=== PATIENT | female | born 1950 | race Caucasian/White ===

== ENCOUNTER 2016-06-27 06:01 | Inpatient (IN) ==
--- NOTE | 2016-06-27 06:59 | Emergency Department Note ---
Disposition Clinical Impression: Hypertensive urgency Disposition: Admitted As Inpatient Condition: Fair Referrals: Jennifer Birch DO [Primary Care Provider] - Forms: Work/School Release, ED Satisfaction Letter Time of Disposition: 09:26 General Adult HPI - General Chief complaint: ED General Medical Stated complaint: High BP Time Seen by Provider: 06/27/16 06:11 Source: patient Limitations: no limitations Nursing Notes Reviewed: Yes Vital Signs Reviewed: Yes - History of Present Illness HPI Narrative: 65-year-old alert and oriented nontoxic-appearing female presents to the emergency Department for chief complaint of "high blood pressure". Patient states that she has felt "rather cruddy" for the past week or so. She states that yesterday morning, she thought that it could be due to her blood pressure, so she checked her pressure at home with her personal blood pressure cuff. She obtained subsequent readings of 250/110 and 243/110. She states that she has also been rather dizzy during this 1 week time frame, however states "it is different than my usual vertigo". She does complain of some associated nausea, however no vomiting. She complains of a headache that began yesterday and is still present today. She states that the headache was gradual in onset. When asked, she denies it coming on as a "thunderclap headache". She does not describe this headache as the worst headache of her life. She rates her headache right now at an 8 out of 10 on a 10 point scale. She states this headache is primarily located to the left occipital region, behind the left ear. She denies any visual disturbances. She denies any injuries or traumas. She denies any known recent head injury. She does state that yesterday she also experienced an episode of left-sided chest pain that lasted approximately 20 minutes. This chest pain occurred while at rest. She describes the pain at this time as a dull pressure and rated it as an 8 out of 10 on a 10 point scale. She did not take any medication in an effort to alleviate this pain. She states that this episode resolved spontaneously after approximately 20 minutes. This pain did not radiate. She denies any chest pain at the present, as well as any chest pain after this particular incident. She denies any fever , chills, cough, abdominal pain. She does complain of being slightly short of breath, however states "but that might just be due to my asthma". Pt Subjective Complaint: "High blood pressure" Onset (ago): day(s) Pain Severity: moderate Pain Scale: 8 Quality: dull Improves with: nothing Worsens with: nothing Associated symptoms: Reports: chest pain, headaches, nausea/vomiting (nausea but no vomiting), shortness of breath, other (dizziness, hypertension) - Related Data Home Medications Medication Instructions Recorded Confirmed Aspirin [Adult Low Dose Aspirin EC] 81 mg PO DAILY 05/30/15 02/23/16 BuPROPion SR (12 HR) [Wellbutrin 150 mg PO BID 05/30/15 02/23/16 SR] Ergocalciferol (VITAMIN D2) 50,000 unit PO MOFR 05/30/15 02/23/16 [Vitamin D2 (50,000 UNIT)] Fenofibrate Nanocrystallized 145 mg PO DAILY 05/30/15 02/23/16 [Tricor] Gabapentin [Neurontin] 600 mg PO TID 05/30/15 02/23/16 Insulin ASPART [NovoLOG] 45 - 55 unit SQ QID 05/30/15 02/23/16 Insulin Glargine,Hum.rec.anlog 45 - 55 unit SQ QPM 05/30/15 02/23/16 [Lantus Solostar] Levothyroxine [Synthroid] 25 mcg PO DAILY 05/30/15 02/23/16 Losartan Potassium [Cozaar] 100 mg PO DAILY 05/30/15 02/23/16 Mesalamine [Apriso] 1.5 gm PO QAM 05/30/15 02/23/16 Omeprazole [PriLOSEC] 40 mg PO DAILY PRN 05/30/15 02/23/16 Ondansetron ODT [Zofran ODT] 4 - 8 mg SL BID PRN 05/30/15 02/23/16 Rosuvastatin [Crestor] 40 mg PO DAILY 05/30/15 02/23/16 TraMADol [Ultram] 50 mg PO TID PRN 05/30/15 02/23/16 Alendronate Sodium [Fosamax] 70 mg PO MO 02/23/16 02/23/16 Cholestyramine/Aspartame 4 gm PO BID PRN 02/23/16 02/23/16 [Cholestyramine Light Packet] Dapagliflozin Propanediol [Farxiga] 5 mg PO DAILY 02/23/16 02/23/16 FLUoxetine HCl [Prozac] 40 mg PO QAM 02/23/16 02/23/16 Furosemide [Lasix] 40 mg PO DAILY PRN 02/23/16 02/23/16 Icosapent Ethyl [Vascepa] 2 gm PO BIDWM 02/23/16 Ipratropium/Albuterol Neb [Duoneb] 3 ml IH QID PRN 02/23/16 02/23/16 Metoclopramide HCl 5 mg PO TID PRN 02/23/16 02/23/16 Trazodone HCl 150 mg PO HS 02/23/16 02/23/16 Previous Rx's Medication Instructions Recorded Amlodipine [Norvasc] 5 mg PO DAILY #30 tablet 02/24/16 Allergies Allergy/AdvReac Type Severity Reaction Status Date / Time Penicillins Allergy Intermediate Vomiting Verified 06/27/16 06:07 Sulfa (Sulfonamide Allergy Intermediate Rash Verified 06/27/16 06:07 Antibiotics) All systems ED: reviewed and negative except as stated. Constitutional: Denies: fever, chills, weakness, weight change Eyes: Denies: eye pain, eye discharge, vision change Cardiovascular: Reports: as per HPI, chest pain. Denies: palpitations, dyspnea on exertion, orthopnea, edema, syncope, paroxysmal nocturnal dyspnea Respiratory: Reports: dyspnea. Denies: cough, wheezes, hemoptysis, stridor Gastrointestinal: Reports: as per HPI, nausea. Denies: abdominal pain, vomiting , diarrhea, constipation, hematemesis, melena, hematochezia Musculoskeletal: Denies: back pain, neck pain, arthralgia, myalgia Integumentary: Denies: rash, abrasion, lesions Neurological: Reports: as per HPI, headache, other (Near syncope). Denies: weakness, numbness, paresthesias, confusion, abnormal gait Psychiatric: Denies: anxiety, depression, suicidal thoughts, homicidal thoughts , auditory hallucinations, visual hallucinations Endocrine: Denies: fatigue Hematological/Lymphatic: Denies: easy bleeding, easy bruising Allergic/Immunologic: Denies: facial swelling, urticaria Past Medical History - Past Medical History Attestation: Yes The following information was validated with the patient. Source: patient Medical history: Reports: asthma, CHF, diabetes, hyperlipidemia, hypertension, myocardial infarction, other Surgical history: Reports: cataract Psychiatric history: Reports: anxiety, depression SHANK ARCHER history: Reports: bilateral tubal ligation - Social History Smoking Status: Former smoker Smokeless Tobacco Status: No Alcohol use: Reports: occasionally Drug use: Reports: none Physical Exam - General Limitations: no limitations General appearance: alert, in no apparent distress - Head Head exam: atraumatic, normocephalic, normal inspection - Eye Eye exam: Present: normal appearance, PERRL, EOMI. Absent: nystagmus - Expanded Eye Exam Pupils: Bilateral: regular, round, reactive, size (2) - ENT ENT exam: mucous membranes moist - Neck Neck exam: Present: normal inspection, full ROM, trachea midline - Chest Chest inspection: Present: normal inspection, symmetric chest wall rise - Respiratory Respiratory exam: Present: normal lung sounds bilaterally. Absent: respiratory distress, wheezes, stridor, accessory muscle use, prolonged expiratory phase - Cardiovascular Cardiovascular exam: Present: regular rate, normal rhythm, normal heart sounds - Abdominal Exam Abdominal exam: Present: soft, Non-Tender, normal bowel sounds. Absent: tenderness, distention, guarding, rebound, rigidity, mass - Extremities Exam Extremities exam: Present: normal inspection, full ROM. Absent: tenderness, pedal edema - Back Exam Back exam: Present: normal inspection, full ROM. Absent: tenderness - Neurological Exam Neurological exam: Present: alert, oriented X3 - Expanded Neurological Exam Patient oriented to: Present: person, place, time Speech: Present: fluid speech Cranial nerves: EOM function (II, III, IV, ): Normal, facial sensation (V): Normal, tongue deviation (XII): Normal Cerebellar function: heel to vo: Normal Cerebellar function: normal gait Motor strength - LUE: 5/5 Motor strength - RUE: 5/5 Motor strength - LLE: 4/5 Motor strength - RLE: 5/5 Upper motor neuron exam: aron neglect: Absent bilaterally, pronator drift: Absent bilaterally, sensory extinction: Absent bilaterally Sensory exam upper extremity: light touch: Normal Sensory exam lower extremity: light touch: Normal Coma Scale Eye Opening: Spontaneous Coma Scale Motor Response: Obeys Commands Coma Scale Verbal Response: Oriented Coma Scale Total: 15 - Psychiatric Psychiatric exam: Present: normal affect, normal mood - Skin Skin exam: Present: warm, dry, intact, normal color. Absent: rash, cyanosis, diaphoresis, erythema, pallor, mottled Course Course Narrative: At this time laboratory results are pending. We will also obtain a noncontrast CT of the head and brain and proceed accordingly. 0750: I discussed this patient's case with Dr. Marte. Dr. Marte is in agreement with the above plan. 0925: I spoke with Dr. Herrera of the hospitalist service. Dr. Herrera excepts the patient for admission. Vital Signs Temperature 97.2 F L 06/27/16 06:04 Pulse Rate 92 06/27/16 06:04 Respiratory Rate 18 06/27/16 06:04 Blood Pressure 216/93 06/27/16 06:04 O2 Sat by Pulse Oximetry 95 06/27/16 06:04 Temperature 97.2 F L 06/27/16 06:04 Pulse Rate 72 06/27/16 09:46 Respiratory Rate 14 06/27/16 09:46 Blood Pressure 162/86 06/27/16 09:46 O2 Sat by Pulse Oximetry 98 06/27/16 09:46 Oxygen Delivery Oxygen Delivery Room Air Medical Decision Making - Medical Records Medical records reviewed: Yes I reviewed the patient's medical records. - Lab Data Lab results reviewed: Yes I reviewed the patient's lab results. Lab results narrative: Laboratory Last Values WBC 11.2 K/mcL (4.3-11.1) H 06/27/16 08:48 RBC 4.87 M/mcL (3.82-4.97) 06/27/16 08:48 Hgb 14.5 g/dL (11.5-15.4) 06/27/16 08:48 Hct 42.7 % (35.3-44.9) 06/27/16 08:48 MCV 87.7 fL (83.0-100.0) 06/27/16 08:48 MCH 29.8 pg (28.0-33.3) 06/27/16 08:48 MCHC 34.0 g/dL (31.6-35.5) 06/27/16 08:48 RDW 12.9 % (11.5-14.5) 06/27/16 08:48 Plt Count 264 K/mcL (140-400) 06/27/16 08:48 MPV 9.4 fL (9.4-12.4) 06/27/16 08:48 Immature Gran % 0.7 % (0-4) 06/27/16 08:48 Seg Neutrophils % 72.5 % 06/27/16 08:48 Lymphocytes % 19.8 % 06/27/16 08:48 Monocytes % 4.3 % 06/27/16 08:48 Eosinophils % 2.3 % 06/27/16 08:48 Basophils % 0.4 % 06/27/16 08:48 Neutrophils # 8.1 K/mcL (1.6-8.9) 06/27/16 08:48 Lymphocytes # 2.2 K/mcL (0.6-4.6) 06/27/16 08:48 Monocytes # 0.5 K/mcL (0.0-1.3) 06/27/16 08:48 Eosinophils # 0.3 K/mcL (0.0-0.6) 06/27/16 08:48 Basophils # 0.1 K/mcL (0.0-0.2) 06/27/16 08:48 PT 11.6 Seconds (9.4-12.1) 06/27/16 08:48 INR 1.1 06/27/16 08:48 APTT 33.0 Seconds (26.0-36.0) 06/27/16 08:48 D-Dimer < 215 ng/mLFEU (0-500) 06/27/16 08:48 Sodium 134 mEq/L (136-145) L 06/27/16 08:48 Potassium 3.8 mEq/L (3.5-4.5) 06/27/16 08:48 Chloride 101 mEq/L (98-109) 06/27/16 08:48 Carbon Dioxide 21 mEq/L (19-29) 06/27/16 08:48 BUN 13 mg/dL (7-20) 06/27/16 08:48 Creatinine 0.76 mg/dL (0.57-1.11) 06/27/16 08:48 Est GFR ( Amer) > 60 (> 60) 06/27/16 08:48 Est GFR (Non-Af Amer) > 60 (> 60) 06/27/16 08:48 BUN/Creatinine Ratio 17 (6-26) 06/27/16 08:48 Glucose 226 mg/dL (70-99) H 06/27/16 08:48 POC Glucose 206 (58-89) H 06/27/16 07:12 Calculated Osmolality 285 (280-300) 06/27/16 08:48 Calcium 9.7 mg/dL (8.6-10.8) 06/27/16 08:48 Troponin I 0.00 ng/mL (0-0.03) 06/27/16 08:48 B-Natriuretic Peptide 21 pg/mL (0-100) 06/27/16 08:48 Urine Color Yellow (Yellow) 06/27/16 07:08 Urine Clarity Cloudy (Clear) A 06/27/16 07:08 Urine pH 6.0 pH Units (5.0-8.0) 06/27/16 07:08 Ur Specific [place] 1.009 (1.010-1.025) L 06/27/16 07:08 Urine Protein Trace mg/dL (Neg-Trace) 06/27/16 07:08 Urine Glucose (UA) Normal mg/dL (Normal) 06/27/16 07:08 Urine Ketones Negative mg/dL (Negative) 06/27/16 07:08 Urine Blood Negative (Negative) 06/27/16 07:08 Urine Nitrite Negative (Negative) 06/27/16 07:08 Urine Bilirubin Negative (Negative) 06/27/16 07:08 Urine Urobilinogen Normal mg/dL (Normal) 06/27/16 07:08 Ur Leukocyte Esterase Large (Negative) H 06/27/16 07:08 Urine Microscopic RBC 0-3 per hpf (0-3) 06/27/16 07:08 Urine Microscopic WBC 50-100 per hpf (0-3) H 06/27/16 07:08 Ur Squamous Epith Cells Many per lpf (None-Few) H 06/27/16 07:08 Urine Bacteria Few per hpf (None-Few) 06/27/16 07:08 Hyaline Casts None Seen per lpf (None-Few) 06/27/16 07:08 Ur Culture Indicated? YES (NO) A 06/27/16 07:08 Result diagrams: 06/27/16 08:48 06/27/16 08:48 Lab Results 06/27/16 06/27/16 06/27/16 Range/Units 07:08 07:12 08:48 WBC 11.2 H (4.3-11.1) K/mcL RBC 4.87 (3.82-4.97) M/mcL Hgb 14.5 (11.5-15.4) g/dL Hct 42.7 (35.3-44.9) % MCV 87.7 (83.0-100.0) fL MCH 29.8 (28.0-33.3) pg MCHC 34.0 (31.6-35.5) g/dL RDW 12.9 (11.5-14.5) % Plt Count 264 (140-400) K/mcL MPV 9.4 (9.4-12.4) fL Immature Gran % 0.7 (0-4) % Seg Neutrophils % 72.5 % Lymphocytes % 19.8 % Monocytes % 4.3 % Eosinophils % 2.3 % Basophils % 0.4 % Neutrophils # 8.1 (1.6-8.9) K/mcL Lymphocytes # 2.2 (0.6-4.6) K/mcL Monocytes # 0.5 (0.0-1.3) K/mcL Eosinophils # 0.3 (0.0-0.6) K/mcL Basophils # 0.1 (0.0-0.2) K/mcL PT (9.4-12.1) Seconds INR APTT (26.0-36.0) Seconds D-Dimer (0-500) ng/mLFEU Sodium (136-145) mEq/L Potassium (3.5-4.5) mEq/L Chloride (98-109) mEq/L Carbon Dioxide (19-29) mEq/L BUN (7-20) mg/dL Creatinine (0.57-1.11) mg/dL Est GFR ( Amer) (> 60) Est GFR (Non-Af Amer) (> 60) BUN/Creatinine Ratio (6-26) Glucose (70-99) mg/dL POC Glucose 206 H (58-89) Calculated Osmolality (280-300) Calcium (8.6-10.8) mg/dL Troponin I (0-0.03) ng/mL B-Natriuretic Peptide (0-100) pg/mL Urine Color Yellow (Yellow) Urine Clarity Cloudy A (Clear) Urine pH 6.0 (5.0-8.0) pH Units Ur Specific [place] 1.009 L (1.010-1.025) Urine Protein Trace (Neg-Trace) mg/dL Urine Glucose (UA) Normal (Normal) mg/dL Urine Ketones Negative (Negative) mg/dL Urine Blood Negative (Negative) Urine Nitrite Negative (Negative) Urine Bilirubin Negative (Negative) Urine Urobilinogen Normal (Normal) mg/dL Ur Leukocyte Esterase Large H (Negative) Urine Microscopic RBC 0-3 (0-3) per hpf Urine Microscopic WBC 50-100 H (0-3) per hpf Ur Squamous Epith Cells Many H (None-Few) per lpf Urine Bacteria Few (None-Few) per hpf Hyaline Casts None Seen (None-Few) per lpf Ur Culture Indicated? YES A (NO) 06/27/16 06/27/16 06/27/16 Range/Units 08:48 08:48 08:48 WBC (4.3-11.1) K/mcL RBC (3.82-4.97) M/mcL Hgb (11.5-15.4) g/dL Hct (35.3-44.9) % MCV (83.0-100.0) fL MCH (28.0-33.3) pg MCHC (31.6-35.5) g/dL RDW (11.5-14.5) % Plt Count (140-400) K/mcL MPV (9.4-12.4) fL Immature Gran % (0-4) % Seg Neutrophils % % Lymphocytes % % Monocytes % % Eosinophils % % Basophils % % Neutrophils # (1.6-8.9) K/mcL Lymphocytes # (0.6-4.6) K/mcL Monocytes # (0.0-1.3) K/mcL Eosinophils # (0.0-0.6) K/mcL Basophils # (0.0-0.2) K/mcL PT 11.6 (9.4-12.1) Seconds INR 1.1 APTT 33.0 (26.0-36.0) Seconds D-Dimer (0-500) ng/mLFEU Sodium 134 L (136-145) mEq/L Potassium 3.8 (3.5-4.5) mEq/L Chloride 101 (98-109) mEq/L Carbon Dioxide 21 (19-29) mEq/L BUN 13 (7-20) mg/dL Creatinine 0.76 (0.57-1.11) mg/dL Est GFR ( Amer) > 60 (> 60) Est GFR (Non-Af Amer) > 60 (> 60) BUN/Creatinine Ratio 17 (6-26) Glucose 226 H (70-99) mg/dL POC Glucose (58-89) Calculated Osmolality 285 (280-300) Calcium 9.7 (8.6-10.8) mg/dL Troponin I 0.00 (0-0.03) ng/mL B-Natriuretic Peptide (0-100) pg/mL Urine Color (Yellow) Urine Clarity (Clear) Urine pH (5.0-8.0) pH Units Ur Specific [place] (1.010-1.025) Urine Protein (Neg-Trace) mg/dL Urine Glucose (UA) (Normal) mg/dL Urine Ketones (Negative) mg/dL Urine Blood (Negative) Urine Nitrite (Negative) Urine Bilirubin (Negative) Urine Urobilinogen (Normal) mg/dL Ur Leukocyte Esterase (Negative) Urine Microscopic RBC (0-3) per hpf Urine Microscopic WBC (0-3) per hpf Ur Squamous Epith Cells (None-Few) per lpf Urine Bacteria (None-Few) per hpf Hyaline Casts (None-Few) per lpf Ur Culture Indicated? (NO) 06/27/16 06/27/16 Range/Units 08:48 08:48 WBC (4.3-11.1) K/mcL RBC (3.82-4.97) M/mcL Hgb (11.5-15.4) g/dL Hct (35.3-44.9) % MCV (83.0-100.0) fL MCH (28.0-33.3) pg MCHC (31.6-35.5) g/dL RDW (11.5-14.5) % Plt Count (140-400) K/mcL MPV (9.4-12.4) fL Immature Gran % (0-4) % Seg Neutrophils % % Lymphocytes % % Monocytes % % Eosinophils % % Basophils % % Neutrophils # (1.6-8.9) K/mcL Lymphocytes # (0.6-4.6) K/mcL Monocytes # (0.0-1.3) K/mcL Eosinophils # (0.0-0.6) K/mcL Basophils # (0.0-0.2) K/mcL PT (9.4-12.1) Seconds INR APTT (26.0-36.0) Seconds D-Dimer < 215 (0-500) ng/mLFEU Sodium (136-145) mEq/L Potassium (3.5-4.5) mEq/L Chloride (98-109) mEq/L Carbon Dioxide (19-29) mEq/L BUN (7-20) mg/dL Creatinine (0.57-1.11) mg/dL Est GFR ( Amer) (> 60) Est GFR (Non-Af Amer) (> 60) BUN/Creatinine Ratio (6-26) Glucose (70-99) mg/dL POC Glucose (58-89) Calculated Osmolality (280-300) Calcium (8.6-10.8) mg/dL Troponin I (0-0.03) ng/mL B-Natriuretic Peptide 21 (0-100) pg/mL Urine Color (Yellow) Urine Clarity (Clear) Urine pH (5.0-8.0) pH Units Ur Specific [place] (1.010-1.025) Urine Protein (Neg-Trace) mg/dL Urine Glucose (UA) (Normal) mg/dL Urine Ketones (Negative) mg/dL Urine Blood (Negative) Urine Nitrite (Negative) Urine Bilirubin (Negative) Urine Urobilinogen (Normal) mg/dL Ur Leukocyte Esterase (Negative) Urine Microscopic RBC (0-3) per hpf Urine Microscopic WBC (0-3) per hpf Ur Squamous Epith Cells (None-Few) per lpf Urine Bacteria (None-Few) per hpf Hyaline Casts (None-Few) per lpf Ur Culture Indicated? (NO) - Radiology Data Radiology results reviewed: Yes I reviewed the patient's radiology results. Chest X-Ray 06/27/16 06:48 IMPRESSION: Clear lungs. Mild bullous changes. No acute abnormality. No significant change from the prior study. D/ / Colin Villanueva MD / Colin Villanueva MD Interpreting Provider: Colin Villanueva MD Head CT 06/27/16 06:49 IMPRESSION: No acute intracranial abnormality. Slight to mild cerebral atrophy appropriate for age. D/ / Colin Villanueva MD / Colin Villanueva MD Interpreting Provider: Colin Villanueva MD - EKG Data EKG #1 EKG attestation: Yes I reviewed and interpreted this EKG. EKG results narrative: EKG reviewed by Dr. Marte as well. EKG shows a sinus rhythm at a rate of 77 bpm. No STEMI. EKG shows normal: sinus rhythm Rate: normal Rhythm: NSR Attestation Statement - Attestation Attestation: For this encounter, I have reviewed the MEAT CO[employer]ER or PA documentation, treatment plan, and medical decision making; and I have had face to face time with this patient. 65-year-old comes in complaining of chest pain yesterday lasted about 2030 minutes today she noticed elevated blood pressure headache. His examination she is awake and alert motor and sensory intact no neuro deficits. CT of the head was negative lab work is essentially negative. We will admit with chest pain rule out.
[2016-06-27 07:17] LABS: Bilirubin,Urine Negative (Negative); Blood,Urine Negative (Negative); Clarity,Urine Cloudy (Clear); Color,Urine Yellow (Yellow); Glucose,Urine (UA) Normal (Normal); Ketones,Urine Negative (Negative); Leukocyte Esterase,Urine Large (Negative); Nitrite,Urine Negative (Negative); Protein,Urine Trace mg/dL (Neg-Trace); Specific Gravity,Urine 1.009 (1.010-1.025); Urobilinogen,Urine Normal (Normal)
[2016-06-27 07:29] LABS: Bacteria,Urine Few per hpf (None-Few); Hyaline Casts,Urine None Seen per lpf (None-Few); RBC,Urine 0-3 per hpf (0-3); Squamous Epithelial Cell,Urine Many per lpf (None-Few); WBC,Urine 50-100 per hpf (0-3)
[2016-06-27] MEDS ORDERED: Aspirin 81 MG TAB.CHEW PO ONE (07:52)
[2016-06-27] MEDS ORDERED: Ondansetron 4 MG/2 ML VIAL IVP ONE (08:12)
[2016-06-27] MEDS ORDERED: 0.9 % Sodium Chloride 1,000 ML IVC ONE (08:12)
[2016-06-27] MEDS ORDERED: Ondansetron ODT 4 MG TAB.RAPDIS SL ONE (08:33)
[2016-06-27 08:56] LABS: Basophils # 0.1 K/mcL (0.0-0.2); Basophils % 0.4 %; Eosinophils # 0.3 K/mcL (0.0-0.6); Eosinophils % 2.3 %; Hematocrit 42.7 % (35.3-44.9); Hemoglobin 14.5 g/dL (11.5-15.4); Immature Granulocytes % 0.7 % (0-4); Lymphocytes # 2.2 K/mcL (0.6-4.6); Lymphocytes % 19.8 %; Mean Corpuscular Hemoglobin 29.8 pg (28.0-33.3); Mean Corpuscular Volume 87.7 fL (83.0-100.0); Mean Platelet Volume 9.4 fL (9.4-12.4); Monocytes # 0.5 K/mcL (0.0-1.3); Monocytes % 4.3 %; Neutrophils # 8.1 K/mcL (1.6-8.9); Platelet Count 264 K/mcL (140-400); Red Blood Count 4.87 M/mcL (3.82-4.97); Red Cell Distribution Width 12.9 % (11.5-14.5); Segmented Neutrophils % 72.5 %
[2016-06-27 09:03] LABS: INR 1.1; Prothrombin Time 11.6 Seconds (9.4-12.1)
[2016-06-27 09:07] LABS: BUN/Creatinine Ratio 17 (6-26); Blood Urea Nitrogen 13 mg/dL (7-20); Calcium 9.7 mg/dL (8.6-10.8); Carbon Dioxide 21 mEq/L (19-29); Chloride 101 mEq/L (98-109); Glucose 226 mg/dL (70-99); Osmolality,Calculated 285 (280-300); Potassium 3.8 mEq/L (3.5-4.5); Sodium 134 mEq/L (136-145); eGFR For African Americans > 60 (> 60); eGFR For Non-African Americans > 60 (> 60)
[2016-06-27] MEDS ORDERED: traMADol 50 MG TABLET PO PRN (11:11)
[2016-06-27] MEDS ORDERED: Ipratropium/Albuterol Neb 3 ML IH PRN (11:11)
[2016-06-27] MEDS ORDERED: Acetaminophen 325 MG TABLET PO PRN (11:16)
[2016-06-27] MEDS ORDERED: Ondansetron 4 MG/2 ML VIAL IVP PRN (11:16)
[2016-06-27] MEDS ORDERED: *HR* Dextrose 50 % in Water (Syg) 50 ML SYRINGE IVP PRN (12:13)
[2016-06-27] MEDS ORDERED: Dextrose Gel 15 GM PO PRN ×2 (12:13)
[2016-06-27] MEDS ORDERED: D5% in Water 1,000 ML IV PRN (12:13)
--- NOTE | 2016-06-27 12:24 | Internal Med History&Physical ---
Date of Encounter: 06/27/16 Time of Encounter: 11:40 Assessment and Plan (1) Chest pain Current visit: No Status: Acute atypical chest pain. first troponin negative. EKG showed SR, HR 77, no acute changes. CXR shows only mild bullous changes. follow up serial troponins and EKG in AM, will do stress test in AM if these tests are negative. could be secondary to elevated BP but given patient has risk factors for ACS (DM, positive family history, old CVA), I will order stress test and echocardiogram. Qualifiers: Chest pain type: precordial pain Qualified Code(s): R07.2 - Precordial pain (2) Dizziness Current visit: Yes Status: Acute likely secondary to elevated BP. CT of the head revealed chronic microvascular ischemic changes. statin. ASA. check doppler of carotids. (3) Migraine Current visit: Yes Status: Acute Improved after migraine cocktail in ED. IV benadryl, IV Zofran and IV fluids. Qualifiers: Migraine type: unspecified Status migrainosus presence: without status migrainosus Intractability: not intractable Qualified Code(s): G43.909 - Migraine, unspecified, not intractable, without status migrainosus (4) Essential hypertension Current visit: No Status: Acute uncontrolled BP on arrival. SBP was 216/93. BP improved after treating migraines. continue home dose of amlodipine, and losartan. (5) Type 2 diabetes mellitus with hyperglycemia Current visit: No Status: Acute ISS. diabetic diet. levemir. Qualifiers: Diabetes mellitus fdc insulin use: with buttermaker use Qualified Code( s): E11.65 - Type 2 diabetes mellitus with hyperglycemia; Z79.4 - USP ( current) use of insulin (6) Hyperlipidemia Current visit: No Status: Chronic not on any meds at home but prior lab work indicate triglycerides in the 800 range. recheck lipid panel in AM. start lipitor. Qualifiers: Hyperlipidemia type: mixed hyperlipidemia Qualified Code(s): E78.2 - Mixed hyperlipidemia (7) CVA (cerebral vascular accident) Current visit: Yes Status: Acute old CVA. Qualifiers: CVA mechanism: unspecified Qualified Code(s): I63.9 - Cerebral infarction, unspecified (8) Crohns disease Current visit: No Status: Chronic continue home dose mesalamine. Qualifiers: Gastrointestinal tract location: small and large intestine Digestive disease complication type: without complication Qualified Code(s): K50.80 - Crohn's disease of both small and large intestine without complications Internal Medicine - H&P: HPI Chief complaint: chest pain, shortness of breath and dizziness since yesterday Admitted From: Home Plans for Post Hospital Care: Home History of present illness: Ms. Conway is a 65 year old female with past medical history of diabetes, CAD, migraines and Crohn's disease who presented with the chief complaint of elevated BP, headache and chest pain. Yesterday, patient developed sudden onset of precordial chest pain, pressure type, intensity 8/10, no radiation, and it was associated with shortness of breath and dizziness. No change with resting or moving. No syncope. No diaphoresis. No focal deficit. No bleeding. No abdominal pain. No urinary complaints. She checked her blood pressure and SBP was 250. In ED, her BP was 216/93, and she received aspirin, and migraine cocktail (IV benadryl, IV Zofran and IV fluids) with improvement of her symptoms. Currently, she only has a mild headache. patient reports that her family members suffer from coronary artery disease. Her father of a heart attack at 50 yo. Her twin sister and two brothers had CABG. Past Med Surg Social Fam HX - Past Medical History Medical history: asthma, CHF, diabetes, hyperlipidemia, hypertension, myocardial infarction, other Psychiatric history: anxiety, depression - Past Surgical History Surgical History: cataract - Social History Smoking Status: Former smoker Smokeless Tobacco Status: No Alcohol use: occasionally Drug use: none - Family History Father Living Status: Hx Family Cardiac Disorders: Yes Mother Living Status: Hx Family Cardiac Disorders: Yes Brother Hx Family Cardiac Disorders: Yes Internal Medicine - H&P: Meds Aspirin [Adult Low Dose Aspirin EC] 81 mg PO DAILY 05/30/15 [History] BuPROPion SR (12 HR) [Wellbutrin SR] 150 mg PO BID 05/30/15 [History] Ergocalciferol (VITAMIN D2) [Vitamin D2 (50,000 UNIT)] 50,000 unit PO MOFR 05/30 [History] Gabapentin [Neurontin] 600 mg PO TID 05/30/15 [History] Insulin ASPART [NovoLOG] 45 - 55 unit SQ ACHS 05/30/15 [History] Levothyroxine [Synthroid] 25 mcg PO DAILY 05/30/15 [History] Losartan Potassium [Cozaar] 100 mg PO DAILY 05/30/15 [History] Mesalamine [Apriso] 1.5 gm PO QAM 05/30/15 [History] Ondansetron ODT [Zofran ODT] 4 - 8 mg SL BID PRN 05/30/15 [History] Rosuvastatin [Crestor] 40 mg PO DAILY 05/30/15 [History] TraMADol [Ultram] 50 mg PO TID PRN 05/30/15 [History] Dapagliflozin Propanediol [Farxiga] 5 mg PO DAILY 02/23/16 [History] FLUoxetine HCl [Prozac] 40 mg PO QAM 02/23/16 [History] Ipratropium/Albuterol Neb [Duoneb] 3 ml IH QID PRN 02/23/16 [History] Metoclopramide HCl 5 mg PO TID PRN 02/23/16 [History] Trazodone HCl 150 mg PO HS 02/23/16 [History] Amlodipine [Norvasc] 5 mg PO DAILY #30 tablet 02/24/16 [Rx] Insulin Glargine,Hum.rec.anlog [Basaglar Kwikpen U-100] 40 unit SQ DAILY [History] Allergies Sulfa (Sulfonamide Antibiotics) Allergy (Intermediate, Verified 06/27/16 06:07) Rash Penicillins Adverse Reaction (Intermediate, Verified 06/27/16 09:53) Vomiting All Systems PM: A 10-system review of systems was performed and is negative for pertinent findings except as documented above in the HPI. - Constitutional Vitals: Temp Pulse Resp BP Pulse Ox 97.8 F 64 16 165/85 95 06/27/16 10:31 06/27/16 10:31 06/27/16 10:31 06/27/16 10:31 06/27/16 10:31 General appearance: Present: cooperative, A&O X 3 - Eye Eye exam: Present: PERRL, sclera anicteric - ENT ENT exam: Present: normal oropharynx - Neck Neck exam general surgery: Present: supple, trachea midline. Absent: lymphadenopathy - Respiratory Respiratory exam: Present: CTAB - Cardiovascular Cardiovascular exam: Present: RRR - GI/Abdominal GI/Abdominal exam: Present: normal bowel sounds, soft. Absent: distended, tenderness - Extremities Exam Extremities exam: Absent: pedal edema - Back Exam Back exam: Absent: CVA tenderness (L), CVA tenderness (R) - Neurological Exam Neurological exam: Present: no focal deficits. Absent: alert, facial droop, speech deficit - Skin Skin exam: Present: intact Internal Med - H&P Results - Labs CBC & Chem 7: 06/27/16 08:48 06/27/16 08:48
[2016-06-27] MEDS: amLODIPine 5 MG TABLET PO SCH (13:59)
[2016-06-27] MEDS: Gabapentin 300 MG CAPSULE PO SCH ×2 (15:14→21:44)
[2016-06-27] MEDS: Insulin LISPRO 300 UNITS/3 ML VIAL SQ SCH ×2 (17:08→20:08)
--- NOTE | 2016-06-27 20:34 | Electrocardiograph Report ---
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
[2016-06-27] MEDS: traZODone 50 MG TABLET PO SCH (21:45)
[2016-06-27] MEDS: BuPROPion SR (12 HR) 150 MG TABLET PO SCH (21:45)
[2016-06-28 03:48] LABS: Basophils # 0.1 K/mcL (0.0-0.2); Basophils % 0.6 %; Eosinophils # 0.6 K/mcL (0.0-0.6); Eosinophils % 4.9 %; Hematocrit 37.1 % (35.3-44.9); Immature Granulocytes % 0.4 % (0-4); Lymphocytes # 4.2 K/mcL (0.6-4.6); Mean Corpuscular HGB Conc 33.4 g/dL (31.6-35.5); Mean Corpuscular Hemoglobin 30.1 pg (28.0-33.3); Mean Platelet Volume 9.6 fL (9.4-12.4); Monocytes # 0.6 K/mcL (0.0-1.3); Monocytes % 4.9 %; Neutrophils # 5.9 K/mcL (1.6-8.9); Platelet Count 239 K/mcL (140-400); Red Blood Count 4.12 M/mcL (3.82-4.97); Segmented Neutrophils % 52.2 %
[2016-06-28 04:04] LABS: Calcium 8.7 mg/dL (8.6-10.8); Magnesium 1.5 mg/dL (1.6-2.6); Potassium 4.6 mEq/L (3.5-4.5)
[2016-06-28 04:05] LABS: Hemoglobin 12.4 g/dL (11.5-15.4)
[2016-06-28] MEDS ORDERED: Regadenoson 0.4 MG/5 ML SYRINGE IVP ONE (07:12)
--- NOTE | 2016-06-28 10:02 | ECHO - Doppler Report ---
Echocardiogram Name: Elda Conway Date of Study: 06/28/2016 Date: 1950 Ht: 61.0 in Medical Record#: [id number] Age: 65 Wt: 147.0 lb Gender: Female BSA: 1.66 Order #: [id number] Location: [facility] Room #: 3B37 Reading Physician: Shante Taylor DO Chemistry Technologist: Malgorzata Gómez RDCS, RVT Ordering Physician: Shani Newsome MD Primary Physician: Jennifer Birch DO Indications: Chest pain Impressions: LVEF 65-70%. Normal LV chamber size, wall thickness and function. Pseudonormal LV diastolic dysfunction. Dynamic LVOT without significant gradient. Normal right ventricular size and function. No significant valvular dysfunction. No pulmonary hypertension. Left Ventricular Wall Motion: Rest Echo Findings All wall segments showed normal motion. Findings: Study Quality * Technically adequate exam. ECG Findings * Normal sinus rhythm. Left Ventricle * Normal LV chamber size, wall thickness and function. * Pseudonormal LV diastolic dysfunction. * Dynamic LVOT without significant gradient. * LVEF 65-70%. Left Atrium * Normal left atrial size. Mitral Valve * Normal mitral valve structure. * No mitral stenosis. * No mitral regurgitation. Aortic Valve * No aortic regurgitation. * Aortic valve not well visualized. * Mildly calcified aortic valve leaflets. * No aortic stenosis. Tricuspid Valve * Tricuspid valve not well visualized. * Trace tricuspid regurgitation. Pulmonic Valve * Pulmonic valve is not well visualized. * No pulmonic stenosis. * Trace pulmonic regurgitation. Pulmonary Artery * Pulmonary artery not well visualized. Right Ventricle * Normal right ventricular structure and function. Right Atrium * Normal right atrial size. Interatrial Septum * Interatrial septum not well evaluated. IVC * The IVC is not well evaluated. Pericardium * There is no pericardial effusion present. Aorta * Normally sized aortic root. History Hypertension Diabetes Hypercholesteremia Family History of CAD History of CAD/PTCA Myocardial Infarction Congestive Heart Failure 03/13/2014 a Previous Echo was performed. Measurements: BP: 130/ 75 2D Normal Values IVSd: .80 cm 0.6 - 1.0 cm LVIDd: 4.20 cm 3.7 - 5.6 cm LVPWd: .80 cm 0.6 - 1.1 cm LVIDs: 2.70 cm 1.5 - 3.6 cm AO: 2.40 cm < 4.0 cm LA: 3.50 cm 2.0 - 4.0cm %FS: 35.70 cm >25 % LA volume: 51 Mitral Valve Peak E:.91 m/sec Peak A:.93 m/sec E/A Ratio:1 Peak E' Lat Benny:7.9 cm/s Peak E' Med Benny:7.21 cm/s E/E' Lat Ratio:11.5 E/E' Med Ratio:12.6 Tricuspid Valve TV Regurg Peak Grad: 12.00mmHg TV Regurg Peak Benny: 1.74m/sec Updated by Shante Taylor on 06/28/2016 9:55:51 AM electronically signed on 06/28/2016 9:56:48 AM with status of Final Wall Motion Hawkins: 1=Normal, 2=Hypokinesis, 3=Akinesis, 4=Dyskinesis, 5=Aneurysmal, 6=Hyperkinetic, X=Not Visualized (Blank)=Missing
--- NOTE | 2016-06-28 10:48 | Nuclear Medicine Stress Report ---
Regadenoson Nuclear Stress Name: Elda Conway Date of Study: 06/28/2016 Date: 1950 Ht: 61.0 in Medical Record#: [id number] Age: 65 Wt: 147.0 lb Gender: Female Order #: [id number] Location: [facility] IP Room: [facility] Supervising Provider: Silverio Taylor CNP Reading Physician: Shante Taylor DO Ordering Physician: Mauricio Treviño MD Primary Care Physician: Jennifer Birch DO Stress Technologist: Bertha Fitzpatrick, TELEVISION ANCHOR, CCT, CPFT Biofuels Manager: Joe Elliott Indications: Chest Pain Impression: Perfusion imaging was negative for ischemia or infarct. Pharmacologic ECG was negative for ischemia at the level of heart rate achieved. Gated EF = >70%. History: Hypertension Diabetes Hypercholesteremia Stress Test Summary: Stress Test Type: Pharmacologic Regadenoson 0.4mg/5ml given IV Baseline Information: Initial Heart Rate: 68 Blood Pressure: 124/64 Stress Information: Stress Time: 4 min sec Test Terminated Due to (primary): As per protocol Maximum Blood Pressure: 134/62 Maximum Heart Rate: 106 Percent Maximum Heart Rate Achieved: 68 Double Product: 42133 METS Reached: 1 Symptoms: Shortness of breath, Lightheadness Nuclear Summary: SPECT myocardial perfusion imaging using Tc99m Sestamibi given intravenously was performed at rest and following cardiac stress testing. The resting images were obtained following initial dose of 10.9 mCi. Following stress an additional dose of 31.5 mCi was given at peak exercise or 30 seconds post regadenoson infusion. Medication Given: Time Medication Dose Units Route Findings: Stress Note * Resting ECG demonstrated normal sinus rhythm with nonspecific ST abnormalities. * Pharmacologic stress ECG is negative for ischemia at level of heart rate achieved. No significant change from baseline ECG. * No arrhythmias were noted during stress. * Patient had no chest pain during stress. Hemodynamic responses * Normal hemodynamic responses to pharmacologic stress. Study Quality * Study quality is good. Gated EF > 70% * Gated EF > 70%. Left Ventricle * The left ventricle is not dilated. TID * No evidence of transient ischemic dilatation. Lung Uptake * There is no evidence of increase lung uptake. NORMALS * Normal wall motion. * Normal segmental perfusion in stress. * Normal Segmental Perfusion in rest. Updated by Shante Taylor on 06/28/2016 10:41:13 AM electronically signed on 06/28/2016 10:41:50 AM with status of Final
--- NOTE | 2016-06-28 14:23 | Internal Med Progress Note ---
Date of Encounter: 06/28/16 Time of Encounter: 13:30 - Assessment and plan (1) Chest pain Current Visit: No Status: Acute Assessment and plan: Patient still complaining of substernal area located chest pain. Acute coronary syndrome ruled out. Chest x-ray negative. Stress test negative in revealing an ejection fraction greater than 70%. Echocardiogram unremarkable ejection fraction of 65-70%. Dynamic LVOT noted but without significant gradient. CT negative We will continue to address her pain and urinary tract infection. ITS Impressions Chest X-Ray 06/27/16 06:48 IMPRESSION: Clear lungs. Mild bullous changes. No acute abnormality. No significant change from the prior study. D/ / Colin Villanueva MD / Colin Villanueva MD Interpreting Provider: Colin Villanueva MD Head CT 06/27/16 06:49 IMPRESSION: No acute intracranial abnormality. Slight to mild cerebral atrophy appropriate for age. D/ / Colin Villanueva MD / Colin Villanueva MD Interpreting Provider: Colin Villanueva MD Echocardiogram impressions: LVEF 65-70%. Normal LV chamber size, wall thickness and function. Pseudo-normal LV diastolic dysfunction. Dynamic LVOT without significant gradient. Normal right ventricular size and function. No significant valvular dysfunction. No pulmonary hypertension. Nuclear stress test impression: Perfusion imaging was negative for ischemia or infarct. Pharmacologic ECG is negative for skin at the level of heart rate achieved. Gated ejection fraction is greater than 70%. Qualifiers: Chest pain type: precordial pain Qualified Code(s): R07.2 - Precordial pain (2) UTI (urinary tract infection) Current Visit: Yes Status: Acute Assessment and plan: Culture report consistent with Corynebacterium species- gram positive and only susceptible to Vanc and Zyvox- will avoid Vanc 2/2 ASCENCION. IV Zyvox initiated. Will transition to PO Zyvox prior to discharge. Patient states she gets urinary tract infections a lot secondary to uncontrolled sugars. We will try to avoid power glide placement. (3) Infection due to Gram positive bacteria Current Visit: Yes Status: Acute (4) Problem with vascular access Current Visit: Yes Status: Resolved Assessment and plan: Difficult to obtain venous access. Resolved. I placed a 20-gauge peripheral IV to her left lateral wrist without difficulty. Patient states she would like to try to avoid a power glide as she has had them in the past. We will attempt to treat Corynebacterium with IV Zyvox, DC on by mouth Zyvox. (5) ASCENCION (acute kidney injury) Current Visit: Yes Status: Acute Assessment and plan: Overnight, will add gentle IV fluids and recheck in the morning. Good by mouth intake. Possibly secondary to urinary tract infection. (6) Dizziness Current Visit: Yes Status: Resolved Assessment and plan: Patient ambulatory around her room, upright and steady gait. She denies lightheadedness or dizziness. (7) Hypertensive urgency Current Visit: Yes Status: Resolved Assessment and plan: Home antihypertensive medications Cozaar 100 mg daily, amlodipine 5 mg daily continued but will hold Cozaar at this time given ASCENCION. Metoprolol prn (8) Migraine Current Visit: Yes Status: Resolved Qualifiers: Migraine type: unspecified Status migrainosus presence: without status migrainosus Intractability: not intractable Qualified Code(s): G43.909 - Migraine, unspecified, not intractable, without status migrainosus (9) DVT prophylaxis Current Visit: No Status: Acute Assessment and plan: IPCs (10) Dehydration Current Visit: No Status: Acute Assessment and plan: Gentle IV fluids, will reexamine in the morning. (11) Essential hypertension Current Visit: No Status: Chronic (12) Crohns disease Current Visit: No Status: Chronic Qualifiers: Gastrointestinal tract location: small and large intestine Digestive disease complication type: without complication Qualified Code(s): K50.80 - Crohn's disease of both small and large intestine without complications (13) Diabetes mellitus Current Visit: No Status: Chronic Assessment and plan: Uncontrolled with a recent A1c of 9.0%. Continue sliding scale while admitted. 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 transplanted heart: squaxin heart Associated angina: with unspecified angina Qualified Code(s): I25.119 - Atherosclerotic heart disease of squaxin coronary artery with unspecified angina pectoris - Subjective Interval history: Patient seen and examined. On examination, patient ambulating around her room. Patient stating she is feeling better but continues to complain of pain located in her epigastric/subxiphoid area. She denies headache at this time. - Constitutional Vitals: Temp Pulse Resp BP Pulse Ox 98.0 F 77 18 125/78 93 L 06/28/16 11:25 06/28/16 11:25 06/28/16 11:25 06/28/16 11:25 06/28/16 11:25 General appearance: Present: cooperative, A&O X 3, pleasant, no acute distress, answers questions appropriately - Head Head exam: Present: atraumatic, normocephalic - Eye Eye exam: Present: PERRL, conjuntiva pink, sclera anicteric Pupils: Present: PERRL - Neck Neck exam general surgery: Present: supple, trachea midline. Absent: lymphadenopathy - Respiratory Respiratory exam: Present: CTAB. Absent: accessory muscle use, rales, respiratory distress, rhonchi, wheezes - Cardiovascular Cardiovascular exam: Present: RRR, +S1, +S2. Absent: diastolic murmur, gallop, rubs, systolic murmur - GI/Abdominal GI/Abdominal exam: Present: normal bowel sounds, soft, no peritoneal signs. Absent: distended, tenderness - Extremities Exam Extremities exam: Present: warm, radial pulses palpable and symetrical. Absent : calf tenderness, cyanotic, pedal edema - Neurological Exam Neurological exam: Present: alert, CN II-XII intact, normal gait, oriented X3, no focal deficits, strengths equal and symetr throughout. Absent: pronater drift, facial droop, speech deficit - Skin Skin exam: Present: dry, intact, pallor, warm Internal Medicine: Result - Labs CBC & Chem 7: 06/28/16 03:26 06/28/16 03:26 Labs: Short CBC 06/28/16 Range/Units 03:26 WBC 11.3 H (4.3-11.1) K/mcL Hgb 12.4 D (11.5-15.4) g/dL Hct 37.1 (35.3-44.9) % Plt Count 239 (140-400) K/mcL Neutrophils # 5.9 (1.6-8.9) K/mcL BMP 06/28/16 03:26 Sodium 136 Potassium 4.6 H Chloride 104 Carbon Dioxide 20 BUN 21 H Creatinine 1.17 H D Glucose 206 H Calcium 8.7 Cardiac Enzymes 06/27/16 06/27/16 06/28/16 Range/Units 14:53 20:45 03:26 Troponin I 0.00 0.00 0.00 (0-0.03) ng/mL - ABG Interpretation ABG results: PT/INR, D-dimer PT 11.6 Seconds (9.4-12.1) 06/27/16 08:48 D-Dimer < 215 ng/mLFEU (0-500) 06/27/16 08:48 Consult Discharge Plan - Plan Referrals: Jennifer Birch DO [Primary Care Provider] -
[2016-06-28] MEDS ORDERED: *HR* Metoprolol 5 MG/5 ML VIAL IVP PRN (14:33)
[2016-06-28] MEDS ORDERED: 0.9 % Sodium Chloride 1,000 ML IVC SCH (14:45)
[2016-06-28] MEDS: Insulin LISPRO 300 UNITS/3 ML VIAL SQ SCH ×4 (15:05→21:03)
[2016-06-28] MEDS: Insulin DETEMIR 100 UNIT/ML X5UNITS SQ SCH (15:23)
[2016-06-28] MEDS: Aspirin Enteric Coated 81 MG Tablet PO SCH (15:23)
[2016-06-28] MEDS: amLODIPine 5 MG TABLET PO SCH (15:24)
[2016-06-28] MEDS: Levothyroxine 25 MCG TABLET PO SCH (15:24)
[2016-06-28] MEDS: BuPROPion SR (12 HR) 150 MG TABLET PO SCH ×2 (15:24→21:04)
[2016-06-28] MEDS: FLUoxetine 20 MG CAPSULE PO SCH (15:24)
[2016-06-28] MEDS: Mesalamine 250 MG CAPSULE.ER PO SCH (15:24)
[2016-06-28] MEDS: Gabapentin 300 MG CAPSULE PO SCH ×3 (15:24→21:04)
--- NOTE | 2016-06-28 16:08 | Carotid Imaging Report ---
Carotid Duplex Patient Name:Elda Conway Order Number:[id number] Procedure Date:06/28/2016 Date:1950ge:65 yrs Gender:Female Lt BP:132 / 78 mmHg Rt.BP:130 / 75 mmHgHeart Rate: Location:[facility] Room #: 3B37 Community Board Member:Malgorzata Gómez RDCS, RVT Referring MD:Shani Newsome MD finisher denture:Jennifer Birch DO Reading MD:Alan Palomares MD , FACS Primary Indications:Dizziness Risk Factors Yes/No Hypertension Yes Diabetes Yes Hypercholesterolemia Yes Smoker Previous Yes Hx of TIA No Hx of CVA No Impressions: Findings: Right carotid system has nonstenotic plaque. Findings: Left carotid system has nonstenotic plaque. Recommendations: After imaging the patient returned to their room. Test completed on 06/28/2016 at 9:13:34 am. Findings Carotid Duplex: Right: There is nonstenotic plaque in the right distal common carotid artery. There is smooth homogeneous plaque. There is nonstenotic plaque in the right bifurcation. There is smooth homogeneous plaque. There is nonstenotic plaque in the right proximal internal carotid artery. There is smooth homogeneous plaque. The right eca has turbulent flow without plaque. There is antegrade spectral Doppler flow patterns in the right vertebral artery. Left: There is nonstenotic plaque in the left bifurcation. There is smooth heterogeneous plaque. The left eca has turbulent flow with plaque. There is smooth homogeneous plaque. There is antegrade spectral Doppler flow patterns in the left vertebral artery. Prior Study: No prior study available for comparison. Carotid Results Right PSV EDV Assessment Proximal CCA 93 19 Normal Mid CCA 103 21 Normal Distal CCA 86 24 Non Stenotic Plaque Bifurcation 74 21 Non Stenotic Plaque Proximal ICA 107 32 Non Stenotic Plaque Mid ICA 111 32 Normal Distal ICA 123 37 Normal ECA 145 20 Turbulent Flow Vertebral Artery 49 14 Antegrade Flow Left PSV EDV Assessment Proximal CCA 126 26 Normal Mid CCA 122 29 Normal Distal CCA 110 21 Normal Bifurcation 92 22 Non Stenotic Plaque Proximal ICA 108 29 Normal Mid ICA 95 24 Normal Distal ICA 83 26 Normal ECA 160 31 Turbulent Flow Vertebral Artery 85 27 Antegrade Flow Ratio's Right ICA/CCA Ratio: 1.19 ICA/CCA Values: 123/103 Left ICA/CCA Ratio: 0.89 ICA/CCA Values: 108/122 Updated by Alan Palomares MD, FACS on 06/28/2016 4:02:40 PM Alan Palomares MD electronically signed on 06/28/2016 4:03:12 PM with status of Final
[2016-06-28] MEDS: *HR* Heparin 5,000 UNIT/ML VIAL SQ SCH (17:44)
[2016-06-28] MEDS: traZODone 50 MG TABLET PO SCH (21:04)
[2016-06-29 04:58] LABS: Basophils % 0.5 %; Eosinophils # 0.3 K/mcL (0.0-0.6); Eosinophils % 4.2 %; Hematocrit 35.3 % (35.3-44.9); Hemoglobin 11.5 g/dL (11.5-15.4); Immature Granulocytes % 0.4 % (0-4); Lymphocytes # 2.8 K/mcL (0.6-4.6); Mean Corpuscular HGB Conc 32.6 g/dL (31.6-35.5); Mean Corpuscular Hemoglobin 29.3 pg (28.0-33.3); Mean Corpuscular Volume 89.8 fL (83.0-100.0); Mean Platelet Volume 9.7 fL (9.4-12.4); Monocytes # 0.4 K/mcL (0.0-1.3); Monocytes % 5.4 %; Neutrophils # 4.5 K/mcL (1.6-8.9); Platelet Count 248 K/mcL (140-400); Red Blood Count 3.93 M/mcL (3.82-4.97); Red Cell Distribution Width 12.7 % (11.5-14.5); Segmented Neutrophils % 55.5 %
[2016-06-29 05:11] LABS: BUN/Creatinine Ratio 19 (6-26); Blood Urea Nitrogen 15 mg/dL (7-20); Calcium 8.7 mg/dL (8.6-10.8); Carbon Dioxide 22 mEq/L (19-29); Chloride 104 mEq/L (98-109); Glucose 269 mg/dL (70-99); Magnesium 1.5 mg/dL (1.6-2.6); Osmolality,Calculated 292 (280-300); Potassium 4.5 mEq/L (3.5-4.5); Sodium 136 mEq/L (136-145); eGFR For African Americans > 60 (> 60); eGFR For Non-African Americans > 60 (> 60)
[2016-06-29] MEDS: *HR* Heparin 5,000 UNIT/ML VIAL SQ SCH (06:11)
[2016-06-29 07:44] VITALS: BP 113/62
[2016-06-29] MEDS: FLUoxetine 20 MG CAPSULE PO SCH (09:10)
[2016-06-29] MEDS: Gabapentin 300 MG CAPSULE PO SCH (09:10)
[2016-06-29] MEDS: Levothyroxine 25 MCG TABLET PO SCH (09:10)
[2016-06-29] MEDS: amLODIPine 5 MG TABLET PO SCH (09:10)
[2016-06-29] MEDS: Insulin DETEMIR 100 UNIT/ML X5UNITS SQ SCH (09:11)
[2016-06-29] MEDS: BuPROPion SR (12 HR) 150 MG TABLET PO SCH (09:11)
[2016-06-29] MEDS: Insulin LISPRO 300 UNITS/3 ML VIAL SQ SCH (09:11)
[2016-06-29] MEDS: Aspirin Enteric Coated 81 MG Tablet PO SCH (09:11)
[2016-06-29] MEDS: Mesalamine 250 MG CAPSULE.ER PO SCH (09:12)
--- NOTE | 2016-06-29 09:18 | Discharge Summary ---
Date of Encounter: 06/29/16 Time of Encounter: 08:45 - Discharge Diagnosis (1) Chest pain Priority: Primary Status: Resolved Comments: Patient denied chest pain on day of discharge. ACS ruled out. 06/28/16 Patient still complaining of substernal area located chest pain. Acute coronary syndrome ruled out. Chest x-ray negative. Stress test negative in revealing an ejection fraction greater than 70%. Echocardiogram unremarkable ejection fraction of 65-70%. Dynamic LVOT noted but without significant gradient. CT negative We will continue to address her pain and urinary tract infection. ITS Impressions Chest X-Ray 06/27/16 06:48 IMPRESSION: Clear lungs. Mild bullous changes. No acute abnormality. No significant change from the prior study. D/ / Colin Villanueva MD / Colin Villanueva MD Interpreting Provider: Colin Villanueva MD Head CT 06/27/16 06:49 IMPRESSION: No acute intracranial abnormality. Slight to mild cerebral atrophy appropriate for age. D/ / Colin Villanueva MD / Colin Villanueva MD Interpreting Provider: Colin Villanueva MD Echocardiogram impressions: LVEF 65-70%. Normal LV chamber size, wall thickness and function. Pseudo-normal LV diastolic dysfunction. Dynamic LVOT without significant gradient. Normal right ventricular size and function. No significant valvular dysfunction. No pulmonary hypertension. Nuclear stress test impression: Perfusion imaging was negative for ischemia or infarct. Pharmacologic ECG is negative for skin at the level of heart rate achieved. Gated ejection fraction is greater than 70%. Qualifiers: Chest pain type: precordial pain Qualified Code(s): R07.2 - Precordial pain (2) UTI (urinary tract infection) Priority: Primary Status: Acute Comments: Culture report consistent with Corynebacterium species- gram positive and only susceptible to Vanc and Zyvox- will avoid Vanc 2/2 ASCENCION. IV Zyvox initiated and she will be sent home on PO Zyvox. Patient states she gets urinary tract infections a lot secondary to uncontrolled sugars. Recommend continued follow- up outpatient (3) Infection due to Gram positive bacteria Priority: Primary Status: Acute (4) Problem with vascular access Priority: Primary Status: Resolved (5) ASCENCION (acute kidney injury) Priority: Primary Status: Resolved (6) Dizziness Priority: Primary Status: Resolved (7) Hypertensive urgency Priority: Primary Status: Resolved (8) Migraine Priority: Primary Status: Resolved Qualifiers: Migraine type: unspecified Status migrainosus presence: without status migrainosus Intractability: not intractable Qualified Code(s): G43.909 - Migraine, unspecified, not intractable, without status migrainosus (9) DVT prophylaxis Priority: Primary Status: Acute Comments: IPCs while admitted (10) Dehydration Priority: Primary Status: Resolved (11) Essential hypertension Priority: Secondary Status: Chronic (12) Crohns disease Priority: Secondary Status: Chronic Qualifiers: Gastrointestinal tract location: small and large intestine Digestive disease complication type: without complication Qualified Code(s): K50.80 - Crohn's disease of both small and large intestine without complications (13) Diabetes mellitus Priority: Secondary Status: Chronic Comments: Uncontrolled with a recent A1c of 9.0%. 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 transplanted heart: [place] heart Associated angina: with unspecified angina Qualified Code(s): I25.119 - Atherosclerotic heart disease of [place] coronary artery with unspecified angina pectoris - Discharge Medications Prescriptions: Linezolid [Zyvox] 600 mg PO BID #20 tablet Home Medications: Aspirin [Adult Low Dose Aspirin EC] 81 mg PO DAILY 05/30/15 [History] BuPROPion SR (12 HR) [Wellbutrin SR] 150 mg PO BID 05/30/15 [History] Ergocalciferol (VITAMIN D2) [Vitamin D2 (50,000 UNIT)] 50,000 unit PO MOFR 05/30 [History] Gabapentin [Neurontin] 600 mg PO TID 05/30/15 [History] Insulin ASPART [NovoLOG] 45 - 55 unit SQ ACHS 05/30/15 [History] Levothyroxine [Synthroid] 25 mcg PO DAILY 05/30/15 [History] Losartan Potassium [Cozaar] 100 mg PO DAILY 05/30/15 [History] Mesalamine [Apriso] 1.5 gm PO QAM 05/30/15 [History] Ondansetron ODT [Zofran ODT] 4 - 8 mg SL BID PRN 05/30/15 [History] Rosuvastatin [Crestor] 40 mg PO DAILY 05/30/15 [History] TraMADol [Ultram] 50 mg PO TID PRN 05/30/15 [History] Dapagliflozin Propanediol [Farxiga] 5 mg PO DAILY 02/23/16 [History] FLUoxetine HCl [Prozac] 40 mg PO QAM 02/23/16 [History] Ipratropium/Albuterol Neb [Duoneb] 3 ml IH QID PRN 02/23/16 [History] Metoclopramide HCl 5 mg PO TID PRN 02/23/16 [History] Trazodone HCl 150 mg PO HS 02/23/16 [History] Amlodipine [Norvasc] 5 mg PO DAILY #30 tablet 02/24/16 [Rx] Insulin Glargine,Hum.rec.anlog [Basaglar Kwikpen U-100] 40 unit SQ DAILY [History] Linezolid [Zyvox] 600 mg PO BID #20 tablet 06/29/16 [Rx] Allergies/Adverse Reactions: Allergies Sulfa (Sulfonamide Antibiotics) Allergy (Intermediate, Verified 06/27/16 06:07) Rash Penicillins Adverse Reaction (Intermediate, Verified 06/27/16 09:53) Vomiting Date of admission: 06/28/16 15:59 Primary care physician: Fallon Griffith Consults: 06/28/16 09:17 Consult to Invasive Line Access Team [CONS] Routine Reason for Consult: Limit access with need for IV access Line Type: EPIV Discharging clinician: Emmie Valentino Anticipated date of discharge: 06/29/16 - Patient Status Disposition: Home, Self-Care Condition: Good Functional capacity at discharge: independent ambulation Overall status at discharge: patient is back to baseline - Discharge Instructions Follow Up With: Jennifer Birch DO [Primary Care Provider] - 07/05/16 9:30 am Additional Instructions: Follow-up with primary care provider as scheduled - Diet and Activity Activity: increase activity as tolerated Diet: diabetic diet, low salt diet Hospital course: Ms. Conway is a 65 year old female with past medical history of diabetes, CAD, migraines, Crohn's disease. Patient presented to the emergency department chief complaint hypertension, headache, and chest pain. On the day of presentation, patient developed sudden onset of precordial chest pain, pressure type, without radiation and was associated with shortness of breath and dizziness. No change with resting or movement. Patient denied syncope, diaphoresis, focal neurological deficits. Initial blood pressure in the emergency department to and patient received aspirin and migraine cocktail including IV fluids, Benadryl, and Zofran with improvement in her symptoms. She was admitted to the hospitalist service for further evaluation and management. Chest x-ray unremarkable for acute processes. Head CT negative. Acute kidney injury also present on presentation. Abnormal urinalysis was noted and urine culture consistent with Corynebacterium species- gram positive and only susceptible to Vanc and Zyvox. She was treated with IV Zyvox while admitted and transition to by mouth Zyvox upon discharge. Her acute kidney injury resolved. Regarding her chest pain, echocardiogram unremarkable with ejection fraction of 65-70%. Dynamic LVOT was noted however there was not a significant gradient. Nuclear stress test was negative. Acute coronary syndrome was ruled out. Home antihypertensive medications of Cozaar 100 mg daily and amlodipine 5 mg daily were initially continued but Cozaar was held due to her acute kidney injury. She was normotensive at time of discharge and was instructed to check her blood pressure daily at home. She is discharged home in stable condition with close outpatient follow-up recommended. ITS Impressions Chest X-Ray 06/27/16 06:48 IMPRESSION: Clear lungs. Mild bullous changes. No acute abnormality. No significant change from the prior study. D/ / Colin Villanueva MD / Colin Villanueva MD Interpreting Provider: Colin Villanueva MD Head CT 06/27/16 06:49 IMPRESSION: No acute intracranial abnormality. Slight to mild cerebral atrophy appropriate for age. D/ / Colin Villanueva MD / Colin Villanueva MD Interpreting Provider: Colin Villanueva MD Carotid duplex impressions: Findings: Right carotid system is nonstenotic plaque. Findings: Left carotid system is nonstenotic plaque. Echocardiogram impressions: LVEF 65-70%. Normal LV chamber size, wall thickness and function. Pseudo-normal LV diastolic dysfunction. Dynamic LVOT without significant gradient. Normal right ventricular size and function. No significant valvular dysfunction. No pulmonary hypertension. Nuclear stress test impression: Perfusion imaging was negative for ischemia or infarct. Pharmacologic ECG is negative for skin at the level of heart rate achieved. Gated ejection fraction is greater than 70%. - Time Spent with Patient Total time spent providing and/or coordinating discharge services: - Constitutional Vitals: Temp Pulse Resp BP Pulse Ox 97.8 F 71 15 113/62 94 L 06/29/16 07:43 06/29/16 07:43 06/29/16 07:43 06/29/16 07:43 06/29/16 07:43 General appearance: Present: cooperative, A&O X 3, pleasant, no acute distress, answers questions appropriately - Head Head exam: Present: atraumatic, normocephalic - Eye Eye exam: Present: PERRL, conjuntiva pink, sclera anicteric Pupils: Present: PERRL - Neck Neck exam general surgery: Present: supple, trachea midline. Absent: lymphadenopathy - Respiratory Respiratory exam: Present: CTAB. Absent: accessory muscle use, rales, respiratory distress, rhonchi, wheezes - Cardiovascular Cardiovascular exam: Present: RRR, +S1, +S2. Absent: diastolic murmur, gallop, rubs, systolic murmur - GI/Abdominal GI/Abdominal exam: Present: normal bowel sounds, soft, no peritoneal signs. Absent: distended, tenderness - Extremities Exam Extremities exam: Present: warm, radial pulses palpable and symetrical. Absent : calf tenderness, cyanotic, pedal edema - Neurological Exam Neurological exam: Present: alert, CN II-XII intact, normal gait, oriented X3, no focal deficits, strengths equal and symetr throughout. Absent: pronater drift, facial droop, speech deficit - Skin Skin exam: Present: dry, intact, normal color, warm
== END 2016-06-29 10:57 | disposition home or self-care (01) | DRG 683 ==
LOC: EMEROO 06:01 → 3BNU 06:01
PROVIDERS: ADMIT Internal Medicine; ATTEND Internal Medicine

== ENCOUNTER 2017-11-13 03:33 | Inpatient (IN) ==
[2017-11-13] MEDS ORDERED: Aspirin 81 MG TAB.CHEW PO ONE (04:34)
[2017-11-13] MEDS ORDERED: *HR* FentaNYL (PF) 100 MCG/2 ML VIAL IVP ONE ×2 (04:39→06:30)
[2017-11-13 04:40] LABS: Basophils # 0.1 K/mcL (0.0-0.2); Basophils % 0.6 %; Eosinophils # 0.3 K/mcL (0.0-0.6); Eosinophils % 2.6 %; Hematocrit 40.6 % (35.3-44.9); Hemoglobin 13.7 g/dL (11.5-15.4); Immature Granulocytes % 0.6 % (0-4); Lymphocytes # 2.6 K/mcL (0.6-4.6); Lymphocytes % 20.7 %; Mean Corpuscular HGB Conc 33.7 g/dL (31.6-35.5); Mean Platelet Volume 9.5 fL (9.4-12.4); Monocytes # 0.8 K/mcL (0.0-1.3); Monocytes % 6.6 %; Neutrophils # 8.5 K/mcL (1.6-8.9); Platelet Count 322 K/mcL (140-400); Red Blood Count 4.56 M/mcL (3.82-4.97); Segmented Neutrophils % 68.9 %
--- NOTE | 2017-11-13 04:42 | Emergency Department Note ---
Disposition Clinical Impression: Elevated troponin Chest pain Qualifiers: Chest pain type: unspecified Qualified Code(s): R07.9 - Chest pain, unspecified Disposition: Home, Self-Care Condition: Good Referrals: Jennifer Birch DO [Primary Care Provider] - Forms: ED Satisfaction Letter Time of Disposition: 07:31 Chest Pain HPI - General Chief Complaint: ED Chest Pain Stated Complaint: Chest Pain Time Seen by Provider: 11/13/17 04:19 Source: patient, family Limitations: no limitations Vital Signs Reviewed: Yes Nursing Notes Reviewed: Yes - History of Present Illness Pt complaint: chest pain Onset (ago): hour(s) Duration: constant Onset: during rest Pain Location: substernal Severity scale (1-10): 8 Pain Radiation: neck Worsens with: exertion Context: recent illness Associated symptoms: Reports: nausea, dyspnea Treatments prior to arrival chest pain: none - Related Data Home Medications Medication Instructions Recorded Confirmed Aspirin [Adult Low Dose Aspirin EC] 81 mg PO DAILY 05/30/15 06/27/16 BuPROPion SR (12 HR) [Wellbutrin 150 mg PO BID 05/30/15 06/27/16 SR] Ergocalciferol (VITAMIN D2) 50,000 unit PO MOFR 05/30/15 06/27/16 [Vitamin D2 (50,000 UNIT)] Gabapentin [Neurontin] 600 mg PO TID 05/30/15 06/27/16 Insulin ASPART [NovoLOG] 45 - 55 unit SQ ACHS 05/30/15 06/27/16 Levothyroxine [Synthroid] 25 mcg PO DAILY 05/30/15 06/27/16 Losartan Potassium [Cozaar] 100 mg PO DAILY 05/30/15 06/27/16 Mesalamine [Apriso] 1.5 gm PO QAM 05/30/15 06/27/16 Ondansetron ODT [Zofran ODT] 4 - 8 mg SL BID PRN 05/30/15 06/27/16 Rosuvastatin [Crestor] 40 mg PO DAILY 05/30/15 06/27/16 traMADol [Ultram] 50 mg PO TID PRN 05/30/15 06/27/16 Dapagliflozin Propanediol [Farxiga] 5 mg PO DAILY 02/23/16 06/27/16 FLUoxetine HCl [Prozac] 40 mg PO QAM 02/23/16 06/27/16 Ipratropium/Albuterol Neb [Duoneb] 3 ml IH QID PRN 02/23/16 06/27/16 Metoclopramide HCl 5 mg PO TID PRN 02/23/16 06/27/16 Trazodone HCl 150 mg PO HS 02/23/16 06/27/16 Insulin Glargine,Hum.rec.anlog 40 unit SQ DAILY 06/27/16 06/27/16 [Basaglar Kwikpen U-100] Previous Rx's Medication Instructions Recorded amLODIPine [Norvasc] 5 mg PO DAILY #30 tablet 02/24/16 Linezolid [Zyvox] 600 mg PO BID #20 tablet 06/29/16 Allergies Allergy/AdvReac Type Severity Reaction Status Date / Time Sulfa (Sulfonamide Allergy Intermediate Rash Verified 08/13/16 22:26 Antibiotics) Penicillins AdvReac Intermediate Vomiting Verified 08/13/16 22:26 All systems ED: reviewed and negative except as stated. Review of Systems: As Per HPI Constitutional: Denies: fever, chills Eyes: Denies: vision change ENT ED: Denies: throat pain Cardiovascular: Reports: as per HPI Respiratory: Reports: as per HPI Gastrointestinal: Reports: as per HPI Genitourinary: Denies: dysuria Musculoskeletal: Denies: back pain Neurological: Denies: headache Psychiatric: Denies: anxiety Endocrine: Denies: fatigue Hematological/Lymphatic: Denies: easy bleeding Allergic/Immunologic: Denies: facial swelling Chest Pain PMH - Past Medical History Medical history: Reports: asthma, CHF, diabetes, hyperlipidemia, hypertension, myocardial infarction, other Surgical history: Reports: cataract Psychiatric history: Reports: anxiety, depression 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 - Social History Smoking Status: Former smoker Alcohol use: Reports: occasionally Drug use: Reports: none Physical Exam - General Limitations: no limitations General appearance: alert, in no apparent distress - Head Head exam: normocephalic - Eye Eye exam: Present: EOMI - ENT ENT exam: mucous membranes moist - Neck Neck exam: Present: full ROM - Chest Chest inspection: Present: symmetric chest wall rise - Respiratory Respiratory exam: Present: normal lung sounds bilaterally - Cardiovascular Cardiovascular exam: Present: regular rate, normal rhythm - Abdominal Exam Abdominal exam: Present: soft, Non-Tender - Extremities Exam Extremities exam: Present: normal inspection, full ROM, normal capillary refill - Back Exam Back exam: Present: full ROM - Neurological Exam Neurological exam: Present: alert, oriented X3 - Psychiatric Psychiatric exam: Present: normal affect, normal mood - Skin Skin exam: Present: warm, dry, intact, normal color. Absent: rash, cyanosis, diaphoresis Course Course Narrative: 67-year-old female insulin-dependent diabetic presents with chest pain. She describes substernal chest pain waking up sleep approx one hour prior to arrival. SHe describes the pain radiating into her neck/jaw and right arm. She states it is worse with movement, and is accompanied with nausea and shortness of breath. She mentions a past medical history of Crohn's and asthma , does describe some vague abdominal pain, no different tonight. does mention that she has a stress test planned ordered from her primary care provider. EKG on arrival, shows inverted T waves, no ST elevation. Patient seen and examined. appears uncomfortable. No acute distress. Workup initiated. Analgesics and antiemetics ordered. Aspirin ordered. - Reevaluation(s) Reevaluation #1: REceived call from [facility] in lab, regarding patient's troponin at 0.07. Reviewed medical records. Admission approx one year ago with chest pain work up with ACS ruled out, including negative stress test and ECHO with EF 65-75% Time: 05:06 Reevaluation #2: this time patient's vitals within normits. Patient is respondingl, and Zofran for pain and nausea. Pt did mention to me she has h/o of CHF, but an added BNP is within normal limits. Low-dose heparin has been ordered, hospice has been paged, for admission. Time: 06:43 Reevaluation #3: Hospitalist has been paged approximately 60 minutes ago. Patient remains pain -free, and vital stable.At this point it seemed to my shift. Care of this patient will be transferred over to day shift provider, Mayelin Kwan PA-C to have asked to discuss patient with hospitalist. I anticipate patient to be accepted to their servic. however please see Mayelin Kwan's documentation if needed for any changes to this plan. Time: 07:30 Vital Signs Temperature 97.6 F 11/13/17 03:47 Pulse Rate 89 11/13/17 03:47 Respiratory Rate 16 11/13/17 03:47 Blood Pressure 149/126 11/13/17 03:47 O2 Sat by Pulse Oximetry 93 11/13/17 03:47 Temperature 97.6 F 11/13/17 03:47 Pulse Rate 78 11/13/17 07:17 Respiratory Rate 15 11/13/17 07:17 Blood Pressure 156/79 11/13/17 07:17 O2 Sat by Pulse Oximetry 95 11/13/17 07:17 Oxygen Delivery Oxygen Delivery Nasal Cannula Chest Pain - MDM Narrative Medical decision making narrative: 67-year-old female presented with substernal chest pain, shortness of breath, nausea. Radiation to her neck and upper extremity. Workup tonight included acute changes in the EKG, elevated troponin. Patient's symptoms improve after fentanyl and Zofran. Chest x-ray unremarkable. Lungs clear to auscultation. Patient was scheduled with Dr. Cat, he also face time patient, agreed with workup and disposition. At time of This documentation, the hospitalist has been paged, and we are waiting a call back. Chest X-Ray 11/13/17 04:20 IMPRESSION: Negative portable chest. D/ / Dashawn Pride MD / Dashawn Pride MD Interpreting Provider: Dashawn Pride MD Laboratory Tests 11/13/17 11/13/17 11/13/17 04:24 04:24 04:24 WBC 12.3 H RBC 4.56 Hgb 13.7 Hct 40.6 MCV 89.0 MCH 30.0 MCHC 33.7 RDW 14.0 Plt Count 322 MPV 9.5 Immature Gran % 0.6 Seg Neutrophils % 68.9 Lymphocytes % 20.7 Monocytes % 6.6 Eosinophils % 2.6 Basophils % 0.6 Neutrophils # 8.5 Lymphocytes # 2.6 Monocytes # 0.8 Eosinophils # 0.3 Basophils # 0.1 Sodium 133 L Potassium 3.8 Chloride 101 Carbon Dioxide 24 BUN 20 Creatinine 0.73 Est GFR ( Amer) > 60 Est GFR (Non-Af Amer) > 60 BUN/Creatinine Ratio 27 H Glucose 115 H Calculated Osmolality 280 Calcium 9.4 Troponin I 0.07 H* B-Natriuretic Peptide 17 Laboratory Tests 11/13/17 11/13/17 11/13/17 04:24 04:24 04:24 WBC 12.3 H RBC 4.56 Hgb 13.7 Hct 40.6 MCV 89.0 MCH 30.0 MCHC 33.7 RDW 14.0 Plt Count 322 MPV 9.5 Immature Gran % 0.6 Seg Neutrophils % 68.9 Lymphocytes % 20.7 Monocytes % 6.6 Eosinophils % 2.6 Basophils % 0.6 Neutrophils # 8.5 Lymphocytes # 2.6 Monocytes # 0.8 Eosinophils # 0.3 Basophils # 0.1 Sodium 133 L Potassium 3.8 Chloride 101 Carbon Dioxide 24 BUN 20 Creatinine 0.73 Est GFR ( Amer) > 60 Est GFR (Non-Af Amer) > 60 BUN/Creatinine Ratio 27 H Glucose 115 H Calculated Osmolality 280 Calcium 9.4 Troponin I 0.07 H* B-Natriuretic Peptide 17 Chest X-Ray 11/13/17 04:20 IMPRESSION: Negative portable chest. D/ / Dashawn Pride MD / Dashawn Pride MD Interpreting Provider: Dashawn Pride MD - Lab Data Lab results reviewed: Yes I reviewed the patient's lab results. Result diagrams: 11/13/17 04:24 11/13/17 04:24 Lab Results 11/13/17 11/13/17 11/13/17 Range/Units 04:21 04:24 04:24 WBC 12.3 H (4.3-11.1) K/mcL RBC 4.56 (3.82-4.97) M/mcL Hgb 13.7 (11.5-15.4) g/dL Hct 40.6 (35.3-44.9) % MCV 89.0 (83.0-100.0) fL MCH 30.0 (28.0-33.3) pg MCHC 33.7 (31.6-35.5) g/dL RDW 14.0 (11.5-14.5) % Plt Count 322 (140-400) K/mcL MPV 9.5 (9.4-12.4) fL Immature Gran % 0.6 (0-4) % Seg Neutrophils % 68.9 % Lymphocytes % 20.7 % Monocytes % 6.6 % Eosinophils % 2.6 % Basophils % 0.6 % Neutrophils # 8.5 (1.6-8.9) K/mcL Lymphocytes # 2.6 (0.6-4.6) K/mcL Monocytes # 0.8 (0.0-1.3) K/mcL Eosinophils # 0.3 (0.0-0.6) K/mcL Basophils # 0.1 (0.0-0.2) K/mcL PT 10.7 (9.4-12.1) Seconds INR 1.0 APTT 33.2 (26.0-36.0) Seconds Sodium 133 L (136-145) mEq/L Potassium 3.8 (3.5-5.1) mEq/L Chloride 101 (98-107) mEq/L Carbon Dioxide 24 (23-29) mEq/L BUN 20 (8-23) mg/dL Creatinine 0.73 (0.60-1.20) mg/dL Est GFR ( Amer) > 60 (> 60) Est GFR (Non-Af Amer) > 60 (> 60) BUN/Creatinine Ratio 27 H (6-26) Glucose 115 H (70-105) mg/dL Calculated Osmolality 280 (280-300) Calcium 9.4 (8.6-10.3) mg/dL Troponin I 0.07 H* (< 0.04) ng/mL B-Natriuretic Peptide (Less than 100) pg/mL 11/13/17 Range/Units 04:24 WBC (4.3-11.1) K/mcL RBC (3.82-4.97) M/mcL Hgb (11.5-15.4) g/dL Hct (35.3-44.9) % MCV (83.0-100.0) fL MCH (28.0-33.3) pg MCHC (31.6-35.5) g/dL RDW (11.5-14.5) % Plt Count (140-400) K/mcL MPV (9.4-12.4) fL Immature Gran % (0-4) % Seg Neutrophils % % Lymphocytes % % Monocytes % % Eosinophils % % Basophils % % Neutrophils # (1.6-8.9) K/mcL Lymphocytes # (0.6-4.6) K/mcL Monocytes # (0.0-1.3) K/mcL Eosinophils # (0.0-0.6) K/mcL Basophils # (0.0-0.2) K/mcL PT (9.4-12.1) Seconds INR APTT (26.0-36.0) Seconds Sodium (136-145) mEq/L Potassium (3.5-5.1) mEq/L Chloride (98-107) mEq/L Carbon Dioxide (23-29) mEq/L BUN (8-23) mg/dL Creatinine (0.60-1.20) mg/dL Est GFR ( Amer) (> 60) Est GFR (Non-Af Amer) (> 60) BUN/Creatinine Ratio (6-26) Glucose (70-105) mg/dL Calculated Osmolality (280-300) Calcium (8.6-10.3) mg/dL Troponin I (< 0.04) ng/mL B-Natriuretic Peptide 17 (Less than 100) pg/mL - Radiology Data Radiology results reviewed: Yes I reviewed the patient's radiology results. - EKG Data EKG attestation: Yes I reviewed and interpreted this EKG. EKG shows normal: sinus rhythm Rate: normal Rhythm: NSR When compared to previous EKG there are: changes noted Interpretation: other (significant changes when compared to EKG 07/2016, anterior and inferior ST segment depression T-wave inversions) Heart Score - Score History: Moderately Suspicious EKG: Non Specific repolarisation Disturbance Age: Greater than 65 Risk Factors: Equal/Greater than 3 risk factor or history of atherosclerotic disease Troponin: 1-3x normal limit HEART Score Total: 7
[2017-11-13 04:59] LABS: BUN/Creatinine Ratio 27 (6-26); Blood Urea Nitrogen 20 mg/dL (8-23); Calcium 9.4 mg/dL (8.6-10.3); Carbon Dioxide 24 mEq/L (23-29); Chloride 101 mEq/L (98-107); Glucose 115 mg/dL (70-105); Osmolality,Calculated 280 (280-300); Potassium 3.8 mEq/L (3.5-5.1); Sodium 133 mEq/L (136-145); eGFR For African Americans > 60 (> 60); eGFR For Non-African Americans > 60 (> 60)
[2017-11-13] MEDS: Nitroglycerin 0.4 MG TAB.SUBL SL ONE ×2 (05:01→05:05)
[2017-11-13 05:07] LABS: Troponin I 0.07 ng/mL (< 0.04)
[2017-11-13] MEDS ORDERED: Ondansetron 4 MG/2 ML VIAL IVP ONE (05:12)
--- NOTE | 2017-11-13 06:36 | Emergency Department Note ---
Disposition Clinical Impression: Chest pain, Elevated troponin Disposition: Home, Self-Care Referrals: Jennifer Birch DO [Primary Care Provider] - Forms: ED Satisfaction Letter General Adult HPI - General Chief complaint: ED Chest Pain Stated complaint: Chest Pain Time Seen by Provider: 11/13/17 04:19 Source: patient, family Limitations: no limitations Nursing Notes Reviewed: Yes Vital Signs Reviewed: Yes - History of Present Illness Pain Scale: 8 - Related Data Home Medications Medication Instructions Recorded Confirmed Aspirin [Adult Low Dose Aspirin EC] 81 mg PO DAILY 05/30/15 06/27/16 BuPROPion SR (12 HR) [Wellbutrin 150 mg PO BID 05/30/15 06/27/16 SR] Ergocalciferol (VITAMIN D2) 50,000 unit PO MOFR 05/30/15 06/27/16 [Vitamin D2 (50,000 UNIT)] Gabapentin [Neurontin] 600 mg PO TID 05/30/15 06/27/16 Insulin ASPART [NovoLOG] 45 - 55 unit SQ ACHS 05/30/15 06/27/16 Levothyroxine [Synthroid] 25 mcg PO DAILY 05/30/15 06/27/16 Losartan Potassium [Cozaar] 100 mg PO DAILY 05/30/15 06/27/16 Mesalamine [Apriso] 1.5 gm PO QAM 05/30/15 06/27/16 Ondansetron ODT [Zofran ODT] 4 - 8 mg SL BID PRN 05/30/15 06/27/16 Rosuvastatin [Crestor] 40 mg PO DAILY 05/30/15 06/27/16 traMADol [Ultram] 50 mg PO TID PRN 05/30/15 06/27/16 Dapagliflozin Propanediol [Farxiga] 5 mg PO DAILY 02/23/16 06/27/16 FLUoxetine HCl [Prozac] 40 mg PO QAM 02/23/16 06/27/16 Ipratropium/Albuterol Neb [Duoneb] 3 ml IH QID PRN 02/23/16 06/27/16 Metoclopramide HCl 5 mg PO TID PRN 02/23/16 06/27/16 Trazodone HCl 150 mg PO HS 02/23/16 06/27/16 Insulin Glargine,Hum.rec.anlog 40 unit SQ DAILY 06/27/16 06/27/16 [Elli Nievescordelia U-100] Previous Rx's Medication Instructions Recorded amLODIPine [Norvasc] 5 mg PO DAILY #30 tablet 02/24/16 Linezolid [Zyvox] 600 mg PO BID #20 tablet 06/29/16 Allergies Allergy/AdvReac Type Severity Reaction Status Date / Time Sulfa (Sulfonamide Allergy Intermediate Rash Verified 08/13/16 22:26 Antibiotics) Penicillins AdvReac Intermediate Vomiting Verified 08/13/16 22:26 Constitutional: Denies: fever, chills Eyes: Denies: vision change ENT ED: Denies: throat pain Cardiovascular: Reports: as per HPI Respiratory: Reports: as per HPI Gastrointestinal: Reports: as per HPI Genitourinary: Denies: dysuria Musculoskeletal: Denies: back pain Neurological: Denies: headache Psychiatric: Denies: anxiety Endocrine: Denies: fatigue Hematological/Lymphatic: Denies: easy bleeding Allergic/Immunologic: Denies: facial swelling Past Medical History - Past Medical History Medical history: Reports: asthma, CHF, diabetes, hyperlipidemia, hypertension, myocardial infarction, other Surgical history: Reports: cataract Psychiatric history: Reports: anxiety, depression 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: Reports: bilateral tubal ligation - Social History Smoking Status: Former smoker Smokeless Tobacco Status: No Alcohol use: Reports: occasionally Drug use: Reports: none Physical Exam - General Limitations: no limitations General appearance: alert, in no apparent distress Course Vital Signs Temperature 97.6 F 11/13/17 03:47 Pulse Rate 89 11/13/17 03:47 Respiratory Rate 16 11/13/17 03:47 Blood Pressure 149/126 11/13/17 03:47 O2 Sat by Pulse Oximetry 93 11/13/17 03:47 Temperature 97.6 F 11/13/17 03:47 Pulse Rate 86 11/13/17 05:07 Respiratory Rate 16 11/13/17 05:07 Blood Pressure 143/75 11/13/17 05:07 O2 Sat by Pulse Oximetry 92 11/13/17 05:07 Oxygen Delivery Oxygen Delivery Room Air Medical Decision Making - Lab Data Result diagrams: 11/13/17 04:24 11/13/17 04:24 Lab Results 11/13/17 11/13/17 11/13/17 Range/Units 04:24 04:24 04:24 WBC 12.3 H (4.3-11.1) K/mcL RBC 4.56 (3.82-4.97) M/mcL Hgb 13.7 (11.5-15.4) g/dL Hct 40.6 (35.3-44.9) % MCV 89.0 (83.0-100.0) fL MCH 30.0 (28.0-33.3) pg MCHC 33.7 (31.6-35.5) g/dL RDW 14.0 (11.5-14.5) % Plt Count 322 (140-400) K/mcL MPV 9.5 (9.4-12.4) fL Immature Gran % 0.6 (0-4) % Seg Neutrophils % 68.9 % Lymphocytes % 20.7 % Monocytes % 6.6 % Eosinophils % 2.6 % Basophils % 0.6 % Neutrophils # 8.5 (1.6-8.9) K/mcL Lymphocytes # 2.6 (0.6-4.6) K/mcL Monocytes # 0.8 (0.0-1.3) K/mcL Eosinophils # 0.3 (0.0-0.6) K/mcL Basophils # 0.1 (0.0-0.2) K/mcL Sodium 133 L (136-145) mEq/L Potassium 3.8 (3.5-5.1) mEq/L Chloride 101 (98-107) mEq/L Carbon Dioxide 24 (23-29) mEq/L BUN 20 (8-23) mg/dL Creatinine 0.73 (0.60-1.20) mg/dL Est GFR ( Amer) > 60 (> 60) Est GFR (Non-Af Amer) > 60 (> 60) BUN/Creatinine Ratio 27 H (6-26) Glucose 115 H (70-105) mg/dL Calculated Osmolality 280 (280-300) Calcium 9.4 (8.6-10.3) mg/dL Troponin I 0.07 H* (< 0.04) ng/mL B-Natriuretic Peptide 17 (Less than 100) pg/mL Critical Care Time Critical Care Time: Yes Total Critical Care Time: 30 Attestation: Critical care performed: Time is exclusive of separately billable procedures. Time includes: direct patient care, patient reassessment, coordination of patient care, interpretation of data (laboratory data, radiology data, and respiratory data), review of patient's medical records, medical consultation and documentation of patient care. Procedures included in critical care time: Procedures excluded from critical care time: Attestation Statement - Attestation Attestation: IMorgan MD, personally evaluated this patient and discussed their management with the midlevel provicer, PAC/HOSPITAL CLERK. I reviewed the midlevel provider 's note and agree with the documented findings, medical decision making, and plan of care. 67-year-old female presents to the emergency department with a complaint of some upper chest pain radiating up into her throat which awoke her from sleep about an hour prior to arrival. She describes it as a throbbing pain. There was some nausea but no vomiting. Some diaphoresis. Mild shortness of breath. Pain radiates up into the shoulders into the upper back. On examination patient is a well-developed well-nourished well-appearing elderly female in no acute distress. She is alert and oriented 3. There is no cyanosis or diaphoresis. Chest is nontender to palpation. Breath sounds are clear and equal bilaterally. Heart regular rate and rhythm. Abdomen soft and nontender with normal bowel sounds. Labs reviewed. Troponin 0.07. Chest x-ray negative. EKG shows normal sinus rhythm with ventricular rate of 90. Anterior ST segment depression and T-wave inversions. Also inferior depression and T-wave inversions. No ST elevation. Patient started on heparin infusion per ACS protocol. Hospitalist consulted for admission.
[2017-11-13] MEDS ORDERED: *HR* Heparin 5,000 UNIT/ML VIAL IVP ONE (06:39)
[2017-11-13] MEDS ORDERED: Heparin 25,000 UNIT/500 ML D5W 25,000 UNIT/500 ML BAG IVC SCH (06:45)
[2017-11-13 07:18] LABS: Prothrombin Time 10.7 Seconds (9.4-12.1)
[2017-11-13 07:20] LABS: Activated Partial Thrombo Time 33.2 Seconds (26.0-36.0)
--- NOTE | 2017-11-13 09:04 | Internal Med History&Physical ---
Date of Encounter: 11/13/17 Time of Encounter: 08:00 Internal Medicine - H&P: HPI Chief complaint: Chest pain Admitted From: Home Plans for Post Hospital Care: Home History of present illness: Patient is a 67-year-old female with past medical history significant for hypertension, hyperlipidemia diabetes and hypothyroid who presents to the ER on 11/13/17 due to chest pain. Patient reports that chest pain woke her up approximately 2 AM this morning. Patient reports of chest pain is substernal and describes it as pressure which radiates up her left neck to her jaw. Patient denies any provoking or relieving factors but reports of associated symptoms of nausea/vomiting, diaphoresis and shortness of breath. Patient admits of having 3 prior episodes in the last month. Patient was scheduled to have a stress test later this week by primary care provider. Patient has strong cardiac risk factors including her brothers who have had MIs 2 of which have in their 40s and 50s and also dad who had [place]. In addition to patient having hypertension diabetes and hyperlipidemia patient also was a former [id number] smoker. In the ER, patient was found to have an elevated troponin of 0.07 and T-wave change in the lateral leads. She was started on heparin drip and will be admitted to medical surgical floor for ACS rule out. Past Med Surg Social Fam HX - Past Medical History Medical history: asthma, CHF, diabetes, hyperlipidemia, hypertension, myocardial infarction, other Additional medical history: Crohns Psychiatric history: anxiety, depression - Past Surgical History Surgical History: cataract Additional surgical history: Cholecystectomy (2003), 2 back surgeries. - Social History Smoking Status: Former smoker Smokeless Tobacco Status: No Alcohol use: occasionally Drug use: none - Family History Father Living Status: Hx Family Cardiac Disorders: Yes Mother Living Status: Hx Family Cardiac Disorders: Yes Brother Hx Family Cardiac Disorders: Yes Internal Medicine - H&P: Meds Aspirin [Adult Low Dose Aspirin EC] 81 mg PO DAILY 05/30/15 [History] BuPROPion SR (12 HR) [Wellbutrin SR] 150 mg PO BID 05/30/15 [History] Ergocalciferol (VITAMIN D2) [Vitamin D2 (50,000 UNIT)] 50,000 unit PO MOFR 05/30 [History] Gabapentin [Neurontin] 600 mg PO TID 05/30/15 [History] Insulin ASPART [NovoLOG] 45 - 55 unit SQ ACHS 05/30/15 [History] Levothyroxine [Synthroid] 25 mcg PO DAILY 05/30/15 [History] Losartan Potassium [Cozaar] 100 mg PO DAILY 05/30/15 [History] Mesalamine [Apriso] 1.5 gm PO QAM 05/30/15 [History] Ondansetron ODT [Zofran ODT] 4 - 8 mg SL BID PRN 05/30/15 [History] Rosuvastatin [Crestor] 40 mg PO DAILY 05/30/15 [History] traMADol [Ultram] 50 mg PO TID PRN 05/30/15 [History] Dapagliflozin Propanediol [Farxiga] 5 mg PO DAILY 02/23/16 [History] FLUoxetine HCl [Prozac] 40 mg PO QAM 02/23/16 [History] Ipratropium/Albuterol Neb [Duoneb] 3 ml IH QID PRN 02/23/16 [History] Metoclopramide HCl 5 mg PO TID PRN 02/23/16 [History] Trazodone HCl 150 mg PO HS 02/23/16 [History] amLODIPine [Norvasc] 5 mg PO DAILY #30 tablet 02/24/16 [Rx] Insulin Glargine,Hum.rec.anlog [Basaglar Kwikpen U-100] 40 unit SQ DAILY [History] Linezolid [Zyvox] 600 mg PO BID #20 tablet 06/29/16 [Rx] 3 Allergy/AdvReac Type Severity Reaction Status Date / Time Sulfa (Sulfonamide Allergy Intermediate Rash Verified 08/13/16 22:26 Antibiotics) Penicillins AdvReac Intermediate Vomiting Verified 08/13/16 22:26 All Systems PM: A 10-system review of systems was performed and is negative for pertinent findings except as documented above in the HPI. - Constitutional Vitals: Temp Pulse Resp BP Pulse Ox 97.6 F 79 12 171/89 95 11/13/17 03:47 11/13/17 08:33 11/13/17 08:33 11/13/17 08:33 11/13/17 08:33 General appearance: Present: A&O X 3, no acute distress - Eye Eye exam: Present: normal appearance, PERRL, conjuntiva pink, sclera anicteric Pupils: Present: PERRL - ENT ENT exam: Present: mucous membranes moist - Respiratory Respiratory exam: Present: CTAB. Absent: accessory muscle use, rales, rhonchi, wheezes - Cardiovascular Cardiovascular exam: Present: RRR, +S1, +S2. Absent: diastolic murmur, gallop, rubs, systolic murmur - GI/Abdominal GI/Abdominal exam: Present: normal bowel sounds, soft, no peritoneal signs. Absent: distended, tenderness - Extremities Exam Extremities exam: Absent: pedal edema - Neurological Exam Neurological exam: Present: oriented X3 - Psychiatric Psychiatric exam: Present: normal mood - Skin Skin exam: Present: normal color Internal Med - H&P Results - Labs CBC & Chem 7: 11/13/17 04:24 11/13/17 04:24 - Assessment and plan (1) Chest pain Current Visit: Yes Status: Acute Assessment and plan: Patient with T-wave changes in the lateral leads in addition to elevated troponin Will continue heparin drip, trend troponins and monitor on telemetry Cardiology has been consulted and appreciate recommendations Qualifiers: Chest pain type: chest pain due to myocardial ischemia Qualified Code(s): I20.8 - Other forms of angina pectoris (2) Elevated troponin Current Visit: Yes Status: Acute Assessment and plan: First troponin 0.07 Will trend troponins and monitor on telemetry Continue heparin drip (3) Type 2 diabetes mellitus with hyperglycemia Current Visit: No Status: Acute Assessment and plan: Continue basal insulin in addition to sliding scale coverage Qualifiers: Diabetes mellitus machine long goods helper insulin use: with machine long goods helper use Qualified Code( s): E11.65 - Type 2 diabetes mellitus with hyperglycemia; Z79.4 - correction ( current) use of insulin (4) Essential hypertension Current Visit: No Status: Chronic Assessment and plan: Continue amlodipine (5) Hyperlipidemia Current Visit: No Status: Chronic Assessment and plan: Continue statin Qualifiers: Hyperlipidemia type: unspecified Qualified Code(s): E78.5 - Hyperlipidemia , unspecified (6) Crohns disease Current Visit: No Status: Chronic Assessment and plan: Continue mesalamine Qualifiers: Digestive disease complication type: unspecified complication Qualified Code(s): K50.919 - Crohn's disease, unspecified, with unspecified complications (7) Hypothyroid Current Visit: Yes Status: Acute Assessment and plan: Continue levothyroxine Qualifiers: Hypothyroidism type: unspecified Qualified Code(s): E03.9 - Hypothyroidism , unspecified (8) Diabetic peripheral neuropathy Current Visit: Yes Status: Acute Assessment and plan: Continue Neurontin (9) Mood disorder Current Visit: Yes Status: Acute Assessment and plan: Continue Wellbutrin and Prozac (10) DVT prophylaxis Current Visit: No Status: Acute Assessment and plan: Heparin drip - Time Spent With Patient Total time spent is greater than 50% in coordination of care (as documented) at patient's floor/unit and/or counseling patient:
[2017-11-13] MEDS ORDERED: Naloxone 0.4 MG/ML INJ IVP PRN (09:07)
--- NOTE | 2017-11-13 11:15 | Cardiology Consult Note ---
Date of Encounter: 11/13/17 Time of Encounter: 11:00 Assessment and Plan (1) NSTEMI (non-ST elevated myocardial infarction) Current Visit: Yes Status: Acute Troponin 0.07, 4.59. Typical chest pain symptoms. ST/T wave changes present. Reports dull chest and neck discomfort upon examination. ASA 324 mg given in ED. Continue heparin gtt and asa. Resume home statin, will start BB. Recommend LHC with possible PCI; alternatives, risk, and benefits discussed, she is agreeable to proceed. Check echocardiogram. Cardiac rehab consult. Will continue to follow. (2) Essential hypertension Current Visit: Yes Status: Chronic Appears to be poorly controlled. Continue ARB, will add BB today. (3) Chest pain Current Visit: No Status: Resolved Plan as above. Qualifiers: Chest pain type: chest pain due to myocardial ischemia Ischemic chest pain type: unstable angina pectoris Qualified Code(s): I20.0 - Unstable angina Discussion w patient/family: The assessment and plan as outlined above was discussed with the patient and/or family members who expressed understanding and agreement. All questions were answered. Thank you for involving us in the care of your patient. Please call with any questions. The patient will be discussed and reviewed with Dr. Rodriguez; changes to be made accordingly. History of Present Illness Consult date: 11/13/17 Requesting physician: Steven Lanza Consult reason: NSTEMI Chief complaint: Chest pain History of present illness: Ms. Conway is a 67 year old female with PMHx significant for DMII, HTN, HLD who presented to the ED after an episode of chest pain that awoke her from sleep at 2 AM. Reports midsternal chest pressure heaviness with radiation to neck, jaw, and right arm. Pain persisted which prompted ED evaluation. Chest discomfort improved with NTG tabs in the ED. Reports ongoing similar symptoms over the past month that worsen with minimal exertion and improve with rest. Initial troponin was 0.07. ST/T wave changes present compared to previous. Reports dull discomfort upon exam including neck pain. Significant risk factors for CAD including HTN, HLD, DMII, and family history. Prior CV testing: TTE 06/2016: LVEF 65-70%, dynamic LVOT without significant gradient LHC 06/2016: negative for ischemia or infarct, gated EF >70% Past Med Surg Social Fam HX - Past Medical History Attestation: Yes The following information was validated with the patient. Source: patient Medical history: asthma, diabetes, hyperlipidemia, hypertension, myocardial infarction, other Additional medical history: Crohns Psychiatric history: anxiety, depression - Past Surgical History Surgical History: cataract, cholecystectomy Additional surgical history: back surgery x2 - Social History Smoking Status: Former smoker Smokeless Tobacco Status: No Alcohol use: none Drug use: none - Family History Father Living Status: Hx Family Cardiac Disorders: Yes Mother Living Status: Hx Family Cardiac Disorders: Yes Brother Hx Family Cardiac Disorders: Yes Medications and Allergies Insulin ASPART [NovoLOG] 32 - 34 unit SQ TIDWM 05/30/15 [History] Levothyroxine [Synthroid] 25 mcg PO DAILY 05/30/15 [History] Losartan Potassium [Cozaar] 100 mg PO DAILY 05/30/15 [History] Ondansetron ODT [Zofran ODT] 4 - 8 mg SL BID PRN 05/30/15 [History] Rosuvastatin [Crestor] 40 mg PO DAILY 05/30/15 [History] Dapagliflozin Propanediol [Farxiga] 5 mg PO DAILY 02/23/16 [History] FLUoxetine HCl [Prozac] 40 mg PO BID 02/23/16 [History] Ipratropium/Albuterol Neb [Duoneb] 3 ml IH QID PRN 02/23/16 [History] Metoclopramide HCl 5 mg PO TID PRN 02/23/16 [History] Trazodone HCl 150 mg PO HS 02/23/16 [History] Aspirin Enteric Coated [Aspirin EC] 81 mg PO DAILY 11/13/17 [History] Baclofen [Lioresal] 10 mg PO TID 11/13/17 [History] Ergocalciferol (VITAMIN D2) [Vitamin D2] 50,000 unit PO MOFR 11/13/17 [History] Fenofibrate Nanocrystallized [Fenofibrate] 145 mg PO DAILY 11/13/17 [History] Furosemide [Lasix] 40 mg PO DAILY 11/13/17 [History] Gabapentin [Neurontin] 800 mg PO TID 11/13/17 [History] Insulin Degludec [Tresiba Flextouch U-200] 40 units SQ HS 11/13/17 [History] Pantoprazole Sodium 40 mg PO DAILY 11/13/17 [History] Pioglitazone [Actos] 15 mg PO 0800 11/13/17 [History] Zolpidem Tartrate 5 mg PO HS PRN 11/13/17 [History] 3 Allergy/AdvReac Type Severity Reaction Status Date / Time Sulfa (Sulfonamide Allergy Intermediate Rash Verified 11/13/17 11:11 Antibiotics) Penicillins AdvReac Intermediate Vomiting Verified 11/13/17 11:11 All Systems Review: The remainder of the systems were reviewed and are negative - Cardiovascular Cardiovascular: as per HPI Physical Examination Vital Signs, Last 4 Hours Temp Pulse Resp BP Pulse Ox 11/13/17 09:22 97.6 F 71 16 170/83 97 General: Conversant HEENT: Atraumatic, Normocephaly Cardiac: Reg Rate and Rhythm, Normal S1 and S2 Lungs: Normal Breath Sounds Neuro: Alert and responsive Abdomen: Soft Skin: No rashes noted on visualized skin Musculoskeletal: No Chest Wall Tenderness Extremities: Other (mild BLE edema, non-pitting. ) Results 11/13/17 04:24 11/13/17 04:24 Lab Results 11/13/17 10:18 Troponin I 4.59 H* Active Medications Heparin Sodium/Dextrose (Heparin 25,000 Unit/500 Ml D5w) 25,000 unit in 500 mls @ 16.329 mls/hr IVC .Q24H ANGELES; 12 UNIT/KG/HR PRN Reason: Protocol Stop: 05/15/18 06:46 Last Admin: 11/13/17 07:52 Dose: 12 unit/kg/hr, 16.329 mls/hr Losartan Potassium (Cozaar) 100 mg PO DAILY ANGELES PRN Reason: Protocol Stop: 05/15/18 11:01 Last Admin: 11/13/17 11:38 Dose: 100 mg Naloxone HCl (Narcan) 0.4 mg IVP Q2MIN PRN PRN Reason: SEE COMMENTS Stop: 05/15/18 09:08 - Imaging and Cardiology Stress Test: report reviewed Echo: report reviewed - EKG Interpretation EKG results cardiology: personally reviewed Consult Discharge Plan - Plan Referrals: Jennifer Birch DO [Primary Care Provider] -
--- NOTE | 2017-11-13 11:32 | Pre-Sedation Evaluation ---
Pre-sedation evaluation - Pre-sedation checklist Date of procedure: 11/13/17 Procedure: [facility] Recent Vitals: Last Vital Signs Temp 97.8 F 11/13/17 11:16 Pulse 76 11/13/17 11:16 Resp 16 11/13/17 11:16 BP 178/75 11/13/17 11:16 Pulse Ox 93 11/13/17 11:16 H&P (including ROS) documented in medical record: Yes Previous reaction to sedatives/anesthetics: No Dietary Status: No solid food in preceding 4 hrs and no liquid in preceding 2 hrs Airway Assessment: Patient can open mouth completely, TMJ function normal ASA Classification *see protocol: CLASS II-Mild systemic disease Plan of Care: Pt appropriate candidate for procedure/moderate/conscious sedation , Risks/benefits of procedure/sedation discussed w/ patient/family
[2017-11-13] MEDS ORDERED: Verapamil 5 MG/2 ML VIAL ONE (12:20)
[2017-11-13] MEDS ORDERED: 0.9 % Sodium Chloride 1,000 ML ONE ×2 (12:20→12:47)
[2017-11-13] MEDS ORDERED: Nitroglycerin 1,000 MCG/10 ML VIAL IV ONE (12:21)
[2017-11-13] MEDS ORDERED: *HR* Heparin 10,000 UNIT/10 ML VIAL ONE (12:21)
[2017-11-13] MEDS ORDERED: ISOVUE-370 200 ML INFUS..BTL IV ONE (12:21)
[2017-11-13] MEDS ORDERED: Heparin 1,000 UNITS/500 mL 500 ML ONE (12:21)
[2017-11-13] MEDS ORDERED: *HR* Midazolam HCl 5 MG/5 ML VIAL IVP ONE (12:46)
[2017-11-13] MEDS ORDERED: *HR* FentaNYL (PF) 250 MCG/5 ML VIAL ONE (12:47)
[2017-11-13] MEDS ORDERED: Tirofiban 12.5 MG/250ML 12.5 MG/250 ML BAG ONE (13:15)
[2017-11-13] MEDS ORDERED: Acetaminophen 325 MG TABLET PO PRN (14:06)
--- NOTE | 2017-11-13 14:14 | Invasive Diagnostic Lab Proc ---
Name: Elda Conway Date of Study: 11/13/2017 Date: 1950 Ht: 61.8in Medical Record#: [id number] Age: 67 Wt: 154.32lb Gender: Female BSA: 1.71 Order #: [id number] BMI: 28.4 Physicians Procedure Physician: Gustavo Prasad MD, [facility] Referring MD: Referring MD: Staff Name Position Time In LolisMiguel RN Monitor 12:35 PM Ingris Vidales RT Scrub 12:35 PM Adryan Flowers RN Pointing Machine Operator 12:35 PM Indications Indication Non-Stemi Procedures Performed Procedure L HRT ARTERY/VENTRICLE ANGIO PRQ CARD REVASC PR 1 VSL Pre-Procedure Checklist Informed consent is complete signed and on chart. H&P is on chart. ID band is on and ID verified with patient. Patient NPO for procedure The procedure was described for the patient and questions were answered. Blood Pressure: 178/75 ECG is on chart. Rhythm: NSR Plan of Care Patient will tolerate the procedure without complications. Adequate level of comfort will be maintained. Hemodynamics will remain stable Patient will recover from procedure without complications. Respiratory function will be maintained. Cardiac rhythm will remain stable. Patient temperature will be maintained. Patient and/or family have verbalized understanding of the procedure. Patient Education Chief Complaint/Reason for Test: Cardiac Cath Developmental Category: Geriatric (65+ years) Developmentally Appropriate for Age: Yes Learning Barriers: None Education Needs: Procedure Education Method: Verbal Information Taught: Cardiac Cath Educational Evaluation: Able to repeat information Intravenous Access Time IV Size Location DC'd Fluid/Drip Rate Units RN 20g 1 /" Patent On Arrival Lt Arm Adryan Flowers RN Allergies SULFA,PERCOCET Opioid Clavulanic Acid PCN (penicillin) SULFA (sulfonamide) Amoxicillin OXYCODONE/ACET (5MG/325MG) OXYCODONE SULFA DRUGS Penicillins Sulfa (Sulfonamide Antibiotics) Vital Signs Time BP (mmHg) HR (bpm) O2 Sat. RR (bpm) LOC 12:48 PM / % 5 = Fully awake and oriented or at pre-proc level 12:48 PM / % 4 = Oriented but drowsy 01:04 PM / % 4 = Oriented but drowsy 01:19 PM / % 4 = Oriented but drowsy 01:34 PM / % 4 = Oriented but drowsy 12:54 PM 162 / 78 94 92 % 12:58 PM 130 / 63 87 91 % 01:03 PM 124 / 67 81 94 % 01:09 PM 145 / 77 79 96 % 01:13 PM 100 / 49 79 90 % 01:18 PM 98 / 52 71 93 % 01:23 PM 108 / 55 70 94 % 01:28 PM 104 / 60 69 94 % 01:33 PM 117 / 60 68 94 % 01:38 PM 106 / 55 67 92 % 01:43 PM 92 / 39 66 93 % 01:48 PM 130 / 59 93 97 % Procedural Medications Time Medication Dose Units Method Given By 12:48 PM Oxygen 2 L/min nasal cannula Adryan Flowers RN 12:55 PM Versed 2 mg Intravenous Adryan Flowers RN 12:55 PM Fentanyl 50 mcg Intravenous Adryan Flowers RN 01:07 PM Versed 1 mg Intravenous Adryan Flowers RN 01:07 PM Fentanyl 25 mcg Intravenous Adryan Flowers RN 01:10 PM Versed 1 mg Intravenous Adryan Flowers RN 01:10 PM Fentanyl 25 mcg Intravenous Adryan Flowers RN 01:11 PM Heparin 2000 units Nitroglycerin 200 mcg Verapamil 2.5 mg Intraarterial Gustavo Prasad MD, FACC 01:13 PM Oxygen 4 L/min nasal cannula Adryan Flowers RN 01:22 PM Aggrastat Bolus: 33 ml Intravenous Adryan Flowers RN 01:22 PM Aggrastat 12.5mg/250ml 12 ml/hr Intravenous Adryan Flowers RN 01:36 PM Nitroglycerin 200 mcg Intraarterial Gustavo Prasad MD 01:42 PM Nitroglycerin 50 mcg Intraarterial Gustavo Prasad MD 01:53 PM Plavix 600 mg Orally Adryan Flowers RN ASA Classification: CLASS II- Mild systemic disease (i.e. well-controlled diabetes, hypertension, asthma, cigarette smoking) Ariadne Score Preprocedure Postprocedure Activity 2- Moves 4 extremities sustained head lift Activity 2- Moves 4 extremities sustained head lift Circulation 2- SBP +/= 20 points of pre-anesthetic level Circulation 2- SBP +/= 20 points of pre-anesthetic level Consciousness 2- Awake and alert oriented x 3 Consciousness 2- Awake and alert oriented x 3 O2 Saturation 2- Able to maintain O2 satruation of 92% on room air O2 Saturation 2- Able to maintain O2 satruation of 92% on room air Respiratory 2- Able to deep breathe and cough well Respiratory 2- Able to deep breathe and cough well Total Score 10 Total Score 10 Contrast Agent: Isovue Diagnostic Contrast: 103 ml Total Contrast: 103 ml Fluoro Dose: 4868 mGy Activated Clotting Time Time Seconds to Clot 01:31 PM 350 Procedure Log Time Note Enter By 12:35 PM Miguel Danielle RN Position: Monitor Time in: 12:35 [facility] 12:35 PM Ingris Vidales RT Position: Scrub Time in: 12:35 [facility] 12:35 PM Adryan Flowers RN Position: Pointing Machine Operator Time in: 12:35 [facility] 12:47 PM Pt arrived to clinical laboratory technologist 2 at 12:47 [facility] 12:47 PM Patient charges- Angio tray pack, Navilyst 3mm J, Pulse Oximetry and ACIST tubing and transducer [facility] 12:48 PM Hair removed from procedure site in procedure lab using clippers. Right wrist/right groin prepped with Chloraprep by Adryan Flowers RN, then patient was draped. Skin intact. [facility] 12:48 PM Physician arrived 12:48 [facility] 12:48 PM ASA Class CLASS II- Mild systemic disease (i.e. well-controlled diabetes, hypertension, asthma, cigarette smoking) [facility] 12:48 PM Meet and greet completed [facility] 12:48 PM Sign in performed according to hospital policy. [facility] 12:48 PM Procedure start 12:48 [facility] 12:48 PM Time: 12:48 Oxygen on at 2 L/min per nasal cannula by Adryan Flowers RN [facility] 12:48 PM Time: 12:48 Patient comfortable and pain free: Yes [facility] 12:48 PM Time: 12:48LOC: 5 = Fully awake and oriented or at pre-proc level [email or web address] 12:48 PM Clinical Presentation: Non-STEMI jcallan 12:49 PM CathStat 12:49 PM Vitals capture started with the following parameters, Patient=Adult, Interval=5 min, Initial Gyaiblbv=692 mmHg, Deflation Rate=5 mmHg, Cuff placed on Right Arm 12:52 PM Vitals capture started with the following parameters, Patient=Adult, Interval=5 min, Initial Zvkzlcio=290 mmHg, Deflation Rate=5 mmHg, Cuff placed on Right Arm 12:54 PM HR=94 bpm, UWVZ=401/78 mmhg, SpO2=92.0 %, Comment=nsr 12:55 PM Time: 12:55 Versed 2 mg Intravenous Given by Adryan Flowers RN 12:55 PM Time: 12:55 Fentanyl 50 mcg Intravenous Given by Adryan Flowers RN 12:58 PM HR=87 bpm, HDRC=682/63 mmhg, SpO2=91.0 %, Comment=nsr 01:03 PM HR=81 bpm, FUSQ=317/67 mmhg, SpO2=94.0 %, Comment=nsr 01:04 PM Time: 12:48LOC: 4 = Oriented but drowsy [email or web address] 01:04 PM Time: 12:48 Patient comfortable and pain free: Yes jcnita 01:05 PM Time out performed according to hospital policy [email or web address] 01:07 PM Time: 13:07 Versed 1 mg Intravenous Given by Adryan Flowers RN 01:07 PM Time: 13:07 Fentanyl 25 mcg Intravenous Given by Adryan Flowers RN 01:09 PM HR=79 bpm, UOZM=160/77 mmhg, SpO2=96.0 %, Comment=nsr 01:10 PM Time: 13:10 Versed 1 mg Intravenous Given by Adryan Flowers RN 01:10 PM Time: 13:10 Fentanyl 25 mcg Intravenous Given by Adryan Flowers RN 01:11 PM Access obtained by percutaneous puncture. 6Fr 11cm Terumo Glidesheath sheath placed in right Radial artery. [id number] [email or web address] 01:11 PM Time: 13:11 Patient given 2,000 units Heparin, 200 mcg Nitroglycerin, and 2.5 mg Verapamil Intraarterial by Gustavo Prasad MD, [facility]. This is given to reduce risk of vessel spasm and thrombosis. [email or web address] 01:12 PM 5Fr TIG catheter inserted over the wire DNC [email or web address] 01:13 PM Time: 13:13 Oxygen on at 4 L/min per nasal cannula by Adryan Flowers RN 01:13 PM HR=79 bpm, WUTC=010/49 mmhg, SpO2=90.0 %, Comment=nsr 01:13 PM Pressure channel 1 zeroed. 01:14 PM LCA angiography performed in multiple views. [email or web address] 01:14 PM catheter repositioned to RCA [email or web address] 01:14 PM Recorded Pressure: Ao, HR=74, Condition=Condition 1 (Aorta) Ao 81/53/65 01:15 PM Lesion found in Mid Circumflex. Pre Stenosis: 100 Pre CLYDE Flow: 0: No Flow/No perfusion [email or web address] 01:15 PM Circumflex, Obtuse Marginal, Left Posterior Descending, and Left Posterolateral Coronary Arteries with 100 % stenosis. If graft is supplying this area, 0 % stenosis jcallihan :16 PM Pressure channel 1 zeroed. 01:16 PM RCA angiography performed in multiple views. jcallihan :18 PM HR=71 bpm, NIBP=98/52 mmhg, SpO2=93.0 %, Comment=nsr 01:18 PM PCI Status Urgent jcallihan :18 PM Catheter removed jcallihan :19 PM Coronary Dominance: right jcallihan :19 PM Time: 13:04 Patient comfortable and pain free: Yes jcallihan :19 PM Time: 13:04LOC: 4 = Oriented but drowsy jcallihan :21 PM Recorded Pressure: Ao, HR=72, Condition=Condition 1 (Aorta) Ao 93/47/64 01:21 PM 5Fr RBL 3.5 Convey guide catheter was used to cannulate the PCI vessel successfully. reused? No jcallihan :21 PM .014 Prowater 180cm guide wire across target lesion- successful. reused? No jcallihan :21 PM Inflation device was opened. [email or web address] :22 PM 2.0 mm x 12 mm Emerge Monorail balloon across target lesion- successful. reused? No jcallihan :22 PM Time: 13:22 Aggrastat Bolus: 33 ml Intravenous Given by Adryan Flowers RN Liao pump jcallihan :22 PM Time: 13:22 Aggrastat 12.5mg/250ml 12 ml/hr Intravenous Given by Adryan Flowers RN Liao pump jcallihan :23 PM HR=70 bpm, WMRR=866/55 mmhg, SpO2=94.0 %, Comment=nsr 01:24 PM Balloon inflated @ 6 zion for 4 seconds jcallihan :25 PM Lesion found in 1st RPL. Pre Stenosis: 80 Pre CLYDE Flow: [email or web address] :25 PM Right Coronary, Right Posterior Descending Arteries with Right Posterolateral and Acute Marginal branches with 80 % stenosis. If graft is supplying this area, 0 % stenosis jcallihan 01:26 PM Recorded Pressure: Ao, HR=72, Condition=Condition 1 (Aorta) Ao 97/57/74 01:27 PM Balloon catheter removed intact. [email or web address] 01:27 PM 1.5 mm x 15 mm Emerge Monorail balloon across target lesion- successful. reused? No jcallihan 01:28 PM Recorded Pressure: Ao, HR=67, Condition=Condition 1 (Aorta) Ao 100/48/68 01:28 PM HR=69 bpm, TARO=093/60 mmhg, SpO2=94.0 %, Comment=nsr 01:29 PM Balloon inflated @ 14 zion for 20 seconds [email or web address] 01:30 PM Balloon inflated @ 14 zion for 18 seconds jcallihan 01:31 PM At 13:31 the ACT was 350 seconds. [email or web address] 01:33 PM Balloon catheter removed intact. [email or web address] 01:33 PM HR=68 bpm, RXZE=337/60 mmhg, SpO2=94.0 %, Comment=nsr 01:33 PM 2.0 x 12 balloon re-inserted. [email or web address] 01:34 PM Time: 13:19LOC: 4 = Oriented but drowsy jcallihan 01:34 PM Time: 13:19 Patient comfortable and pain free: Yes [email or web address] 01:35 PM Balloon inflated @ 6 zion for 5 seconds [email or web address] 01:35 PM Balloon inflated @ 6 zion for 2 seconds [email or web address] 01:36 PM Balloon inflated @ 12 zion for 15 seconds [email or web address] 01:36 PM Time: 13:36 Nitroglycerin 200 mcg Intraarterial Given by Gustavo Prasad MD [email or web address] 01:38 PM HR=67 bpm, QUWV=603/55 mmhg, SpO2=92.0 %, Comment=nsr 01:38 PM Balloon catheter removed intact. [email or web address] 01:39 PM 2.5mm x 12mm Synergy drug-eluting stent across target lesion- successful Lot #[id number] [email or web address] 01:40 PM Stent deployed @ 14 zion for 15 seconds [email or web address] 01:42 PM Time: 13:42 Nitroglycerin 50 mcg Intraarterial Given by Gustavo Prasad MD [email or web address] 01:43 PM Stent delivery system removed intact. [email or web address] 01:43 PM HR=66 bpm, NIBP=92/39 mmhg, SpO2=93.0 %, Comment=nsr 01:45 PM Guide catheter removed intact. [email or web address] 01:45 PM 5Fr Pigtail catheter inserted over the wire [facility] jcallihan 01:46 PM Catheter selectively placed in left ventricle jcallihan 01:46 PM Pressure channel 1 zero failed. 01:46 PM Pressure channel 1 zero failed. 01:46 PM Pressure channel 1 zero failed. 01:46 PM Pressure channel 1 zeroed. 01:47 PM Recorded Pressure: LV, HR=72, Condition=Condition 1 (Left Ventricle) LV 136/11/21 01:47 PM Bolus angiogram of left Ventricle complete: 10 ml/sec for a total of 30 mls [email or web address] 01:47 PM Recorded Pressure: LV, Ao, HR=74, Condition=Condition 1 (Left Ventricle) LV 127/11/23, (Aorta) Ao 124/66/89 01:48 PM Catheter removed [email or web address] 01:48 PM Wire removed [email or web address] 01:48 PM HR=93 bpm, VLUS=255/59 mmhg, SpO2=97 % 01:49 PM Procedure completed at 13:49 11/13/2017 [email or web address] 01:49 PM Time: 13:34 Patient comfortable and pain free: Yes [email or web address] 01:50 PM Time: 13:34LOC: 4 = Oriented but drowsy jcallihan 01:51 PM Did you address CLYDE flow and Dominance? Yes [email or web address] 01:51 PM Sign out completed: Radiation Dose 704 mGy 4868 mGycm2 Fluoro Time: 11 Isovue 370 - 200ml contrast 103 ml given by Gustavo Prasad MD, [facility]. Complications: NoneCardiac Rehab Consult needed: YesConfirmed administered medications: Yes jcallihan 01:51 PM Isovue 370 - 200ml,1 Bottle(s) used. [email or web address] 01:51 PM Arterial sheath pulled, Vasc Band closure device used and was Successful S/N. jcallihan 01:51 PM 11 ml air in Vasc Band. jcallihan 01:51 PM Estimated Blood Loss: less than 20cc jcallihan 01:51 PM Post ECG NSR jcallihan 01:52 PM Post Blood Pressure 130/59 jcallihan 01:52 PM 13:52 Post Pulses Bilateral DP & PT 2+ jcallihan 01:52 PM 13:52 Post Pulses Bilateral radial 1+ [email or web address] 01:52 PM Information taught Cardiac Cath, PCI, and Vasc Band jcallihan 01:52 PM Education needs Procedure, Plan of Care, and Responsibilities of Patient in Care [email or web address] 01:52 PM Learning barriers :None jcallihan 01:52 PM Education Methods Verbal jcallihan 01:52 PM Education evaluation Able to repeat information [email or web address] 01:52 PM Site status No bleeding/hematoma - Rt Wrist as reported by Ingris Vidales RT at 13:52 jcallihan 01:53 PM Report given to 2A RN Pt taken to 2A Room #44. 13:52 jcallihan 01:53 PM Plavix, Effient or Brilinta given Yes [email or web address] 01:53 PM Time: 13:53 Plavix 600 mg Orally Given by Adryan Flowers RN [email or web address] 01:54 PM Family placed in consult room. [email or web address] 01:54 PM Complications: None jcallihan 01:54 PM Fluoro Time: 11 [email or web address] 01:54 PM Isovue 370 - 200ml contrast 103 ml given by Gustavo Prasad. [email or web address] 01:55 PM Radiation Dose 704 mGy jcallihan 01:57 PM Lesion found in Proximal LAD. Pre Stenosis: 20 Pre CLYDE Flow: [email or web address] 01:57 PM Proximal Left Anterior Descending Coronary Artery with 20% stenosis. If graft is supplying this territory, 0 % stenosis. [email or web address] 02:01 PM Patient out of room: 14:01 [email or web address] Complications Complication None None Hemodynamics Pressures Site Systolic/A Wave Diastolic/V Wave Mean AO 81 53 65 AO 93 47 64 AO 97 57 74 AO 100 48 68 LV 136 11 21 LV 127 11 23 AO 124 66 89 Post Procedure Information Blood Pressure: 130/59 mmHg Rhythm: NSR Post procedural instructions were given Closure Device Time Device Success/Fail 11/13/2017 1:00:00 PM Mechanical Compression Successful Site Checks Time Location Status Staff Sheath In? Note 01:52 PM Rt Wrist No bleeding/hematoma Ingris Vidales RT Pulses Time Site Pre-Procedure Post-Procedure Note Bilateral radial 2+ Bilateral DP & PT 2+ 1:52:00 PM Bilateral DP & PT 2+ 1:52:00 PM Bilateral radial 1+ Updated by Miguel Danielle RN on 11/13/2017 2:03:54 PM electronically signed on 11/13/2017 2:05:43 PM with status of Final
[2017-11-13] MEDS ORDERED: *HR* Dextrose 50 % in Water (Syg) 50 ML SYRINGE IVP PRN (21:39)
[2017-11-13] MEDS ORDERED: Dextrose Gel 15 GM/37.5 ML TUBE PO PRN ×2 (21:39)
[2017-11-13] MEDS ORDERED: D5% in Water 1,000 ML IVC PRN (21:39)
[2017-11-13] MEDS ORDERED: Insulin LISPRO 300 UNITS/3 ML VIAL SQ SCH (21:45)
[2017-11-14] MEDS ORDERED: Insulin DETEMIR 100 UNIT/ML X5UNITS SQ STA (00:20)
[2017-11-14] MEDS ORDERED: Ondansetron 4 MG/2 ML VIAL IVP PRN (03:30)
[2017-11-14 05:14] LABS: Basophils # 0.1 K/mcL (0.0-0.2); Basophils % 0.5 %; Eosinophils # 0.3 K/mcL (0.0-0.6); Eosinophils % 2.6 %; Hematocrit 35.9 % (35.3-44.9); Immature Granulocytes % 0.4 % (0-4); Lymphocytes # 2.5 K/mcL (0.6-4.6); Lymphocytes % 20.5 %; Mean Corpuscular HGB Conc 33.7 g/dL (31.6-35.5); Mean Corpuscular Hemoglobin 30.3 pg (28.0-33.3); Mean Corpuscular Volume 89.8 fL (83.0-100.0); Mean Platelet Volume 10.1 fL (9.4-12.4); Monocytes % 8.2 %; Neutrophils # 8.3 K/mcL (1.6-8.9); Platelet Count 298 K/mcL (140-400); Red Cell Distribution Width 14.4 % (11.5-14.5); Segmented Neutrophils % 67.8 %
[2017-11-14 05:18] LABS: Hemoglobin 12.1 g/dL (11.5-15.4)
[2017-11-14] MEDS: Insulin LISPRO 300 UNITS/3 ML VIAL SQ SCH ×3 (08:32→16:38)
[2017-11-14 08:36] LABS: BUN/Creatinine Ratio 25 (6-26); Blood Urea Nitrogen 24 mg/dL (8-23); Calcium 8.7 mg/dL (8.6-10.3); Carbon Dioxide 20 mEq/L (23-29); Chloride 103 mEq/L (98-107); Glucose 235 mg/dL (70-105); Osmolality,Calculated 288 (280-300); Potassium 4.7 mEq/L (3.5-5.1); Sodium 133 mEq/L (136-145); eGFR For African Americans > 60 (> 60); eGFR For Non-African Americans 58 (> 60)
--- NOTE | 2017-11-14 09:06 | Cardiology Progress Note ---
Date of Encounter: 11/14/17 Time of Encounter: 08:30 Assessment and Plan (1) NSTEMI (non-ST elevated myocardial infarction) Current Visit: Yes Status: Acute Troponin 0.07, 4.59. Typical chest pain symptoms. ST/T wave changes present. [facility] 11/13/17: s/p PTCA,BONNIE to pLCX; residual small vessel disease (small PLB branch), otherwise mild, non-obstructive CAD (20% pLAD, 30-40% mLAD, 20% pRCA), EF 65% TTE 11/14/17: LVEF 65%, no significant valvular dysfunction, normal wall motion Post PCI discharge instructions discussed including care of cath site and importance of uninterrupted DAPT (asa + plavix) for a minimum of 1 year. Continue betablocker, statin. Recommend prn NTG tabs upon discharge. Cardiac rehab consulted. No further inpatient recommendations, Cardiology will sign-off. Will coordinate outpatient follow-up in 5-7 days. (2) Essential hypertension Current Visit: Yes Status: Chronic Continue ARB and BB. Control improved overnight. Discussion w patient/family: The assessment and plan as outlined above was discussed with the patient and/or family members who expressed understanding and agreement. All questions were answered. Thank you for involving us in the care of your patient. Please call with any questions. The patient will be discussed and reviewed with Dr. Prasad; changes to be made accordingly. Subjective Principal diagnosis: NSTEMI Interval history: Seen and examined. No complaints overnight. Denies recurrent chest pain. No issues with right radial cath site. Objective Vital Signs, Last 4 Hours Temp Pulse Resp BP Pulse Ox 11/14/17 07:11 98.5 F 62 17 113/67 95 General: Conversant, No Apparent Distress HEENT: Atraumatic, Normocephaly, Mucus Membranes Moist Cardiac: Reg Rate and Rhythm, Normal S1 and S2 Lungs: Normal Breath Sounds Neuro: Alert and responsive Abdomen: Soft Skin: No rashes noted on visualized skin Musculoskeletal: No Chest Wall Tenderness Extremities: No Edema, Normal Pulses Other: right radial cath site: +2 pulses, brisk cap refill, no hematoma present Results 11/14/17 04:31 11/14/17 04:31 Lab Results 11/13/17 11/14/17 11/14/17 10:18 04:31 04:31 WBC 12.2 H Hgb 12.1 D Hct 35.9 Plt Count 298 Sodium 133 L Potassium 4.7 Chloride 103 Carbon Dioxide 20 L BUN 24 H Creatinine 0.96 Glucose 235 H Calcium 8.7 Troponin I 4.59 H* Active Medications Acetaminophen (Tylenol) 650 mg PO Q6H PRN PRN Reason: Mild Pain Stop: 05/15/18 14:07 Clopidogrel Bisulfate (Plavix) 75 mg PO DAILY [facility] Stop: 05/16/18 09:01 Last Admin: 11/14/17 08:32 Dose: 75 mg Dextrose/Water (Dextrose 50% (Syg)) 25 ml IVP AD PRN PRN Reason: Hypoglycemia Stop: 05/15/18 21:40 Glucagon (Glucagen) 1 mg IM ONCE PRN PRN Reason: Hypoglycemia Stop: 05/15/18 21:40 Glucose (Gluctose) 15 gm PO ONCE PRN PRN Reason: Hypoglycemia Stop: 05/15/18 21:40 Glucose (Gluctose) 30 gm PO ONCE PRN PRN Reason: Hypoglycemia Stop: 05/15/18 21:40 Dextrose (Dextrose 5%) 1,000 mls @ 100 mls/hr IVC .Q10H PRN PRN Reason: HYPOGLYCEMIA Stop: 05/15/18 21:40 Insulin Human Lispro (Humalog) 0 units SQ HS ANGELES PRN Reason: Protocol Stop: 05/15/18 21:46 Last Admin: 11/13/17 21:59 Dose: 7 unit Insulin Human Lispro (Humalog) 0 units SQ TIDAC ANGELES PRN Reason: Protocol Stop: 05/16/18 07:31 Last Admin: 11/14/17 08:32 Dose: 6 units Losartan Potassium (Cozaar) 100 mg PO DAILY ANGELES PRN Reason: Protocol Stop: 05/15/18 11:01 Last Admin: 11/14/17 08:32 Dose: 100 mg Metoprolol Tartrate (Lopressor) 25 mg PO BID [facility] Stop: 05/15/18 11:46 Last Admin: 11/14/17 08:32 Dose: 25 mg Naloxone HCl (Narcan) 0.4 mg IVP Q2MIN PRN PRN Reason: SEE COMMENTS Stop: 05/15/18 09:08 Ondansetron HCl (Zofran) 4 mg IVP Q4H PRN; Protocol PRN Reason: Nausea Stop: 05/16/18 03:31 Last Admin: 11/14/17 03:57 Dose: 4 mg Rosuvastatin Calcium (Crestor) 40 mg PO HS ANGELES Stop: 05/15/18 21:01 Last Admin: 11/13/17 21:58 Dose: 40 mg - Imaging and Cardiology Echo: report reviewed Cardiac cath: report reviewed Other Results: 12 hour tele: avg HR=62 SR. No events noted. - EKG Interpretation EKG results cardiology: personally reviewed Consult Discharge Plan - Plan Referrals: Graciela Sheridan MD [Partnered Physician] - 11/16/17 3:40 pm Zully Vanegas CNP [Partnered Physician] - 11/21/17 10:00 am
[2017-11-14] MEDS ORDERED: Nitroglycerin 0.4 MG TAB.SUBL SL PRN (09:07)
[2017-11-14] MEDS ORDERED: Aspirin 81 MG TAB.CHEW PO SCH (09:15)
[2017-11-14] MEDS ORDERED: Insulin DETEMIR 100 UNIT/ML X5UNITS SQ SCH (13:30)
[2017-11-14 15:19] VITALS: BP 110/66
--- NOTE | 2017-11-14 18:27 | Discharge Summary ---
- NOTES TO OUTPATIENT PROVIDER Notes to Outpatient Provider: Admitted with NSTEMI. Had cardiac catheterization. One drug-eluting stent was inserted into the proximal left circumflex artery. She will be taking Plavix (in addition to aspirin) for at least 1 year. Date of Encounter: 11/14/17 Time of Encounter: 18:23 - Discharge Diagnosis (1) NSTEMI (non-ST elevated myocardial infarction) Priority: Primary Status: Acute (2) Coronary artery disease Priority: Secondary Status: Chronic Qualifiers: Coronary Disease-Associated Artery/Lesion type: [place] artery [place] vs. transplanted heart: [place] heart Associated angina: with unspecified angina Qualified Code(s): I25.119 - Atherosclerotic heart disease of [place] coronary artery with unspecified angina pectoris (3) Type 2 diabetes mellitus with hyperglycemia Priority: Secondary Status: Chronic Qualifiers: Diabetes mellitus terminal supervisor insulin use: with terminal supervisor use Qualified Code( s): E11.65 - Type 2 diabetes mellitus with hyperglycemia; Z79.4 - alf ( current) use of insulin (4) HTN (hypertension) Priority: Secondary Status: Chronic (5) Essential hypertension Priority: Secondary Status: Chronic Hospital course: Ms. Conway is a 67 year old female Discharge discussed with: patient, family, nurse - Time Spent with Patient Total time spent providing and/or coordinating discharge services: Greater than 30 minutes (35 minutes) - Discharge Medications Prescriptions: Nitroglycerin 0.4 mg SL Q5MIN PRN #25 tab.subl PRN Reason: Chest Pain Clopidogrel [Plavix] 75 mg PO DAILY #30 tablet Metoprolol [Lopressor] 25 mg PO BID #60 tablet Home Medications: Insulin ASPART [NovoLOG] 32 - 34 unit SQ TIDWM 05/30/15 [History] Levothyroxine [Synthroid] 25 mcg PO DAILY 05/30/15 [History] Losartan Potassium [Cozaar] 100 mg PO DAILY 05/30/15 [History] Ondansetron ODT [Zofran ODT] 4 - 8 mg SL BID PRN 05/30/15 [History] Rosuvastatin [Crestor] 40 mg PO DAILY 05/30/15 [History] Dapagliflozin Propanediol [Farxiga] 5 mg PO DAILY 02/23/16 [History] FLUoxetine HCl [Prozac] 40 mg PO BID 02/23/16 [History] Ipratropium/Albuterol Neb [Duoneb] 3 ml IH QID PRN 02/23/16 [History] Metoclopramide HCl 5 mg PO TID PRN 02/23/16 [History] Trazodone HCl 150 mg PO HS 02/23/16 [History] Aspirin Enteric Coated [Aspirin EC] 81 mg PO DAILY 11/13/17 [History] Baclofen [Lioresal] 10 mg PO TID 11/13/17 [History] Ergocalciferol (VITAMIN D2) [Vitamin D2] 50,000 unit PO MOFR 11/13/17 [History] Fenofibrate Nanocrystallized [Fenofibrate] 145 mg PO DAILY 11/13/17 [History] Furosemide [Lasix] 40 mg PO DAILY 11/13/17 [History] Gabapentin [Neurontin] 800 mg PO TID 11/13/17 [History] Insulin Degludec [Tresiba Flextouch U-200] 40 units SQ HS 11/13/17 [History] Pantoprazole Sodium 40 mg PO DAILY 11/13/17 [History] Pioglitazone [Actos] 15 mg PO 0800 11/13/17 [History] Zolpidem Tartrate 5 mg PO HS PRN 11/13/17 [History] Clopidogrel [Plavix] 75 mg PO DAILY #30 tablet 11/14/17 [Rx] Metoprolol [Lopressor] 25 mg PO BID #60 tablet 11/14/17 [Rx] Nitroglycerin 0.4 mg SL Q5MIN PRN #25 tab.subl 11/14/17 [Rx] Allergies/Adverse Reactions: 3 Allergy/AdvReac Type Severity Reaction Status Date / Time Sulfa (Sulfonamide Allergy Intermediate Rash Verified 11/13/17 11:11 Antibiotics) Penicillins AdvReac Intermediate Vomiting Verified 11/13/17 11:11 Date of admission: 11/13/17 09:07 Primary care physician: Fallon Griffith Consults: 11/13/17 11:43 Consult to Cardiac Rehabilitation-Phase1 [CONS] Routine Comment: Reason for Consult: NSTEMI Call Completed: No Discharging clinician: Shantanu Garcia Anticipated date of discharge: 11/14/17 - Constitutional Vitals: Temp Pulse Resp BP Pulse Ox 98.5 F 62 16 110/66 92 11/14/17 15:18 11/14/17 15:18 11/14/17 15:18 11/14/17 15:18 11/14/17 15:18 General appearance: Present: A&O X 3, no acute distress - Respiratory Respiratory exam: Present: CTAB. Absent: accessory muscle use, rales, rhonchi, wheezes - Cardiovascular Cardiovascular exam: Present: RRR, +S1, +S2. Absent: diastolic murmur, gallop, rubs, systolic murmur - GI/Abdominal GI/Abdominal exam: Present: normal bowel sounds, soft, no peritoneal signs. Absent: distended, tenderness - Patient Status Disposition: Home, Self-Care Condition: Good Functional capacity at discharge: independent ambulation Overall status at discharge: patient is back to baseline - Discharge Instructions Instructions: Aspirin (By mouth), Clopidogrel (By mouth), Chest Pain (DC) Follow Up With: Graciela Sheridan MD [Partnered Physician] - 11/16/17 3:40 pm Zully Vanegas CNP [Partnered Physician] - 11/21/17 10:00 am - Diet and Activity Activity: resume usual activities as tolerated Diet: diabetic diet - VTE Deep Vein Thrombosis/Pulmonary Embolism Present on Admission: No
--- NOTE | 2017-11-15 16:35 | Electrocardiograph Report ---
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
== END 2017-11-14 19:16 | disposition home or self-care (01) | DRG 247 ==
LOC: EMEROO 03:33 → 2ANU 03:33 → SUATTDRO 09:07
PROVIDERS: ADMIT Hospitalist; ATTEND Internal Medicine

== ENCOUNTER 2019-11-21 12:47 | Inpatient (IN) ==
[2019-11-21] MEDS ORDERED: Aspirin 81 MG TAB.CHEW PO ONE (12:52)
[2019-11-21] MEDS ORDERED: Nitroglycerin 0.4 MG TAB.SUBL SL PRN (12:52)
[2019-11-21 13:57] LABS: Basophils # 0.1 K/mcL (0.0-0.2); Basophils % 0.4 %; Eosinophils # 0.3 K/mcL (0.0-0.6); Eosinophils % 2.4 %; Hematocrit 39.8 % (35.3-44.9); Hemoglobin 13.2 g/dL (11.5-15.4); Immature Granulocytes % 0.6 % (0-4); Lymphocytes % 15.4 %; Mean Corpuscular HGB Conc 33.2 g/dL (31.6-35.5); Mean Corpuscular Hemoglobin 30.2 pg (28.0-33.3); Mean Corpuscular Volume 91.1 fL (83.0-100.0); Mean Platelet Volume 10.3 fL (9.4-12.4); Monocytes # 0.7 K/mcL (0.0-1.3); Monocytes % 5.1 %; Neutrophils # 9.6 K/mcL (1.6-8.9); Platelet Count 333 K/mcL (140-400); Red Blood Count 4.37 M/mcL (3.82-4.97); Red Cell Distribution Width 13.2 % (11.5-14.5); Segmented Neutrophils % 76.1 %; White Blood Count 12.6 K/mcL (4.3-11.1)
[2019-11-21 14:07] LABS: INR 1.1; Prothrombin Time 12.4 Seconds (9.4-12.1)
[2019-11-21 14:17] LABS: BUN/Creatinine Ratio 24 (6-26); Blood Urea Nitrogen 20 mg/dL (8-23); Calcium 9.7 mg/dL (8.6-10.3); Carbon Dioxide 24 mEq/L (23-29); Chloride 100 mEq/L (98-107); Glucose 375 mg/dL (70-105); Osmolality,Calculated 294 (280-300); Potassium 4.2 mEq/L (3.5-5.1); Sodium 133 mEq/L (136-145); Troponin I < 0.03 ng/mL (< 0.04); eGFR For African Americans > 60 (> 60); eGFR For Non-African Americans > 60 (> 60)
[2019-11-21] MEDS ORDERED: Insulin Regular, Human 100 UNIT/ML SQ ONE (14:19)
[2019-11-21] MEDS ORDERED: Naloxone 0.4 MG/ML INJ IVP PRN (14:22)
[2019-11-21] MEDS ORDERED: *HR* Dextrose 50 % in Water (Vial) 50 ML VIAL IVP PRN (14:26)
[2019-11-21] MEDS ORDERED: Dextrose Gel 15 GM/37.5 ML TUBE PO PRN ×2 (14:26)
[2019-11-21] MEDS ORDERED: D5% in Water 1,000 ML IVC PRN (14:26)
[2019-11-21] MEDS ORDERED: Ipratropium/Albuterol Neb 3 ML IH PRN (14:27)
[2019-11-21] MEDS ORDERED: Insulin DETEMIR 100 UNIT/ML X5UNITS SQ SCH (14:30)
[2019-11-21] MEDS ORDERED: *HR* Labetalol 20 MG/4 ML SYRINGE IVP PRN (14:41)
[2019-11-21] MEDS ORDERED: Baclofen 10 MG TABLET PO PRN (14:57)
[2019-11-21] MEDS ORDERED: Perflutren Lipid Microsphere 1.3 ML in 0.9 % Sodium Chloride 8.7 ML IVP ONE (15:53)
[2019-11-21] MEDS: Insulin DETEMIR 100 UNIT/ML X5UNITS SQ SCH (17:17)
[2019-11-21] MEDS: Gabapentin 400 MG CAPSULE PO SCH ×2 (17:17→22:49)
[2019-11-21] MEDS: *HR* Heparin 5,000 UNIT/ML VIAL SQ SCH (17:17)
[2019-11-21] MEDS: Insulin LISPRO 300 UNITS/3 ML VIAL SQ SCH (17:24)
[2019-11-21] MEDS: Ondansetron 4 MG/2 ML VIAL IVP PRN (21:25)
[2019-11-21] MEDS: FLUoxetine 20 MG CAPSULE PO SCH (22:47)
[2019-11-21] MEDS: Bumetanide 1 MG TABLET PO SCH (22:48)
[2019-11-22 03:58] LABS: Basophils # 0.1 K/mcL (0.0-0.2); Basophils % 0.7 %; Eosinophils # 0.4 K/mcL (0.0-0.6); Hematocrit 38.3 % (35.3-44.9); Hemoglobin 12.3 g/dL (11.5-15.4); Immature Granulocytes % 0.6 % (0-4); Lymphocytes # 2.4 K/mcL (0.6-4.6); Lymphocytes % 26.2 %; Mean Corpuscular HGB Conc 32.1 g/dL (31.6-35.5); Mean Corpuscular Hemoglobin 29.9 pg (28.0-33.3); Mean Corpuscular Volume 93.2 fL (83.0-100.0); Mean Platelet Volume 10.1 fL (9.4-12.4); Monocytes # 0.6 K/mcL (0.0-1.3); Monocytes % 6.7 %; Neutrophils # 5.6 K/mcL (1.6-8.9); Platelet Count 310 K/mcL (140-400); Red Blood Count 4.11 M/mcL (3.82-4.97); Segmented Neutrophils % 61.8 %; White Blood Count 9.1 K/mcL (4.3-11.1)
[2019-11-22 04:16] LABS: BUN/Creatinine Ratio 22 (6-26); Blood Urea Nitrogen 21 mg/dL (8-23); Calcium 8.9 mg/dL (8.6-10.3); Carbon Dioxide 23 mEq/L (23-29); Chloride 103 mEq/L (98-107); Glucose 288 mg/dL (70-105); Magnesium 1.6 mg/dL (1.6-2.6); Osmolality,Calculated 296 (280-300); Potassium 4.1 mEq/L (3.5-5.1); Sodium 136 mEq/L (136-145); eGFR For African Americans > 60 (> 60); eGFR For Non-African Americans 58 (> 60)
[2019-11-22] MEDS: *HR* Heparin 5,000 UNIT/ML VIAL SQ SCH ×2 (05:20→18:06)
[2019-11-22] MEDS: Levothyroxine 25 MCG TABLET PO SCH (05:20)
[2019-11-22] MEDS: Insulin LISPRO 300 UNITS/3 ML VIAL SQ SCH ×3 (07:50→16:54)
[2019-11-22] MEDS: Gabapentin 400 MG CAPSULE PO SCH ×3 (08:41→22:01)
[2019-11-22] MEDS: Isosorbide MONOnitrate (24 HR) 30 MG TAB.ER.24H PO SCH (08:41)
[2019-11-22] MEDS: amLODIPine 5 MG TABLET PO SCH (08:41)
[2019-11-22] MEDS: Aspirin Enteric Coated 81 MG Tablet PO SCH (08:41)
[2019-11-22] MEDS: Insulin DETEMIR 100 UNIT/ML X5UNITS SQ SCH ×3 (08:42→22:01)
[2019-11-22] MEDS: FLUoxetine 20 MG CAPSULE PO SCH ×2 (08:42→22:01)
[2019-11-22] MEDS: Bumetanide 1 MG TABLET PO SCH (08:44)
[2019-11-22] MEDS ORDERED: Metoprolol 100 MG TABLET PO SCH (09:00)
[2019-11-22] MEDS ORDERED: Spironolactone 25 MG TABLET PO SCH (09:00)
[2019-11-22] MEDS ORDERED: Metoprolol XL (24 HR) Succ 50 MG TAB.ER.24H PO SCH (09:00)
[2019-11-22] MEDS ORDERED: lisinopriL 10 MG TABLET PO SCH (10:30)
[2019-11-22] MEDS ORDERED: Bumetanide 1 MG TABLET PO PRN (15:15)
[2019-11-22] MEDS: Ondansetron 4 MG/2 ML VIAL IVP PRN (22:25)
[2019-11-23 01:56] LABS: Hematocrit 40.1 % (35.3-44.9); Hemoglobin 12.2 g/dL (11.5-15.4); Mean Corpuscular HGB Conc 30.4 g/dL (31.6-35.5); Mean Corpuscular Hemoglobin 29.1 pg (28.0-33.3); Mean Corpuscular Volume 95.7 fL (83.0-100.0); Mean Platelet Volume 10.5 fL (9.4-12.4); Platelet Count 317 K/mcL (140-400); Red Blood Count 4.19 M/mcL (3.82-4.97); White Blood Count 10.1 K/mcL (4.3-11.1)
[2019-11-23 02:01] LABS: Potassium 4.7 mEq/L (3.5-5.1)
[2019-11-23] MEDS: *HR* Heparin 5,000 UNIT/ML VIAL SQ SCH ×2 (06:22→17:42)
[2019-11-23] MEDS: Levothyroxine 25 MCG TABLET PO SCH (06:22)
[2019-11-23] MEDS ORDERED: carvediloL 6.25 MG TABLET PO SCH (08:00)
[2019-11-23] MEDS: Insulin LISPRO 300 UNITS/3 ML VIAL SQ SCH ×3 (08:30→17:42)
[2019-11-23] MEDS ORDERED: hydroCHLOROthiazide 25 MG TABLET PO SCH (08:30)
[2019-11-23] MEDS: Insulin DETEMIR 100 UNIT/ML X5UNITS SQ SCH ×2 (08:30→20:49)
[2019-11-23] MEDS: Aspirin Enteric Coated 81 MG Tablet PO SCH (11:04)
[2019-11-23] MEDS: amLODIPine 5 MG TABLET PO SCH (11:04)
[2019-11-23] MEDS: Isosorbide MONOnitrate (24 HR) 30 MG TAB.ER.24H PO SCH (11:04)
[2019-11-23] MEDS: FLUoxetine 20 MG CAPSULE PO SCH ×2 (11:05→20:50)
[2019-11-23] MEDS: Ondansetron 4 MG/2 ML VIAL IVP PRN ×2 (12:58→20:58)
[2019-11-23 19:36] LABS: Protein/Creatinine Ratio,Urine 0.11 mg/mg (0.00-0.20)
[2019-11-24] MEDS: *HR* Heparin 5,000 UNIT/ML VIAL SQ SCH (05:13)
[2019-11-24] MEDS: Levothyroxine 25 MCG TABLET PO SCH (05:13)
[2019-11-24 06:16] LABS: Hematocrit 37.2 % (35.3-44.9); Hemoglobin 11.9 g/dL (11.5-15.4); Mean Corpuscular Hemoglobin 29.7 pg (28.0-33.3); Mean Corpuscular Volume 92.8 fL (83.0-100.0); Mean Platelet Volume 10.7 fL (9.4-12.4); Platelet Count 312 K/mcL (140-400); Red Blood Count 4.01 M/mcL (3.82-4.97); Red Cell Distribution Width 12.8 % (11.5-14.5); White Blood Count 10.6 K/mcL (4.3-11.1)
[2019-11-24 06:32] LABS: Calcium 9.1 mg/dL (8.6-10.3); Potassium 4.3 mEq/L (3.5-5.1)
[2019-11-24] MEDS: Insulin LISPRO 300 UNITS/3 ML VIAL SQ SCH ×2 (08:21→12:33)
[2019-11-24] MEDS: amLODIPine 5 MG TABLET PO SCH (08:21)
[2019-11-24] MEDS: FLUoxetine 20 MG CAPSULE PO SCH (08:22)
[2019-11-24] MEDS: Aspirin Enteric Coated 81 MG Tablet PO SCH (08:22)
[2019-11-24] MEDS: Isosorbide MONOnitrate (24 HR) 30 MG TAB.ER.24H PO SCH (08:22)
[2019-11-24 11:27] VITALS: BP 148/73
[2019-11-24 11:31] LABS: Bacteria,Urine Few per hpf (None-Few); Bilirubin,Urine Negative (Negative); Blood,Urine Negative (Negative); Clarity,Urine Turbid (Clear); Color,Urine Light-Yellow (Yellow); Glucose,Urine (UA) >=1000 mg/dL (Normal); Hyaline Casts,Urine Few per lpf (None Seen); Ketones,Urine Negative (Negative); Leukocyte Esterase,Urine Large (Negative); Mucus,Urine Few per lpf (None-Few); Nitrite,Urine Negative (Negative); PH,Urine 5.5 pH Units (5.0-8.0); Protein,Urine Trace mg/dL (Neg-Trace); Specific Gravity,Urine 1.025 (1.010-1.025); Squamous Epithelial Cell,Urine Moderate per hpf (None-Few); Urobilinogen,Urine Normal (Normal); WBC,Urine 50-100 per hpf (0-3)
[2019-11-24] MEDS: Insulin DETEMIR 100 UNIT/ML X5UNITS SQ SCH (12:33)
== END 2019-11-24 13:38 | disposition home or self-care (01) | DRG 303 ==
LOC: EMEROOARM 12:47 → 3BNU 12:47
PROVIDERS: ADMIT Internal Medicine; ATTEND Internal Medicine

== ENCOUNTER 2020-03-02 13:59 | Inpatient (IN) ==
[2020-03-02] MEDS ORDERED: Isovue-370 500 ML BOTTLE IVP ONE (14:41)
[2020-03-02 16:38] LABS: BUN/Creatinine Ratio 18 (6-26); Blood Urea Nitrogen 17 mg/dL (8-23); Calcium 9.2 mg/dL (8.6-10.3); Carbon Dioxide 23 mEq/L (23-29); Chloride 101 mEq/L (98-107); Glucose 249 mg/dL (70-105); Osmolality,Calculated 292 (280-300); Potassium 4.1 mEq/L (3.5-5.1); Sodium 136 mEq/L (136-145); Troponin I < 0.03 ng/mL (< 0.04); eGFR For African Americans > 60 (> 60); eGFR For Non-African Americans 59 (> 60)
[2020-03-02 16:44] LABS: Basophils # 0.1 K/mcL (0.0-0.2); Basophils % 0.5 %; Eosinophils # 0.4 K/mcL (0.0-0.6); Eosinophils % 3.4 %; Hematocrit 38.6 % (35.3-44.9); Hemoglobin 12.4 g/dL (11.5-15.4); Immature Granulocytes % 0.5 % (0-4); Lymphocytes # 2.1 K/mcL (0.6-4.6); Lymphocytes % 19.1 %; Mean Corpuscular HGB Conc 32.1 g/dL (31.6-35.5); Mean Corpuscular Hemoglobin 28.6 pg (28.0-33.3); Mean Corpuscular Volume 88.9 fL (83.0-100.0); Mean Platelet Volume 9.7 fL (9.4-12.4); Monocytes # 0.6 K/mcL (0.0-1.3); Monocytes % 5.3 %; Neutrophils # 7.9 K/mcL (1.6-8.9); Platelet Count 307 K/mcL (140-400); Red Blood Count 4.34 M/mcL (3.82-4.97); Red Cell Distribution Width 13.1 % (11.5-14.5); Segmented Neutrophils % 71.2 %
[2020-03-02] MEDS ORDERED: Naloxone 0.4 MG/ML INJ IVP PRN (19:25)
[2020-03-02] MEDS ORDERED: D5% in Water 1,000 ML IVC PRN (19:30)
[2020-03-02] MEDS ORDERED: Dextrose Gel 15 GM/37.5 ML TUBE PO PRN ×2 (19:30)
[2020-03-02] MEDS ORDERED: *HR* Dextrose 50 % in Water (Vial) 50 ML VIAL IVP PRN (19:30)
[2020-03-02] MEDS ORDERED: Insulin LISPRO 300 UNITS/3 ML VIAL SQ SCH (21:00)
[2020-03-02] MEDS ORDERED: Ondansetron 4 MG/2 ML VIAL IVP ONE (21:02)
[2020-03-02] MEDS ORDERED: Acetaminophen 325 MG TABLET PO ONE (21:03)
[2020-03-02] MEDS ORDERED: Melatonin 3 MG TABLET PO ONE (21:20)
[2020-03-02] MEDS ORDERED: Acetaminophen IV 500 MG/50 ML INFUS..BTL IVPB ONE (23:59)
[2020-03-03 04:46] LABS: INR 1.1; Prothrombin Time 12.9 Seconds (9.4-12.1)
[2020-03-03 05:03] LABS: BUN/Creatinine Ratio 17 (6-26); Blood Urea Nitrogen 13 mg/dL (8-23); Calcium 8.9 mg/dL (8.6-10.3); Carbon Dioxide 22 mEq/L (23-29); Chloride 104 mEq/L (98-107); Chol/HDL Ratio 6.8 (0-4.9); Cholesterol 203 mg/dL (< 200); Glucose 286 mg/dL (70-105); HDL Cholesterol 30 mg/dL (40-59); Osmolality,Calculated 293 (280-300); Potassium 4.2 mEq/L (3.5-5.1); Sodium 136 mEq/L (136-145); Triglycerides 404 mg/dL (< 150); eGFR For African Americans > 60 (> 60); eGFR For Non-African Americans > 60 (> 60)
[2020-03-03 05:16] LABS: LDL Cholesterol,Direct 115 mg/dL (75-193)
[2020-03-03 05:49] LABS: Basophils # 0.1 K/mcL (0.0-0.2); Basophils % 0.7 %; Eosinophils # 0.4 K/mcL (0.0-0.6); Eosinophils % 4.3 %; Hemoglobin 12.2 g/dL (11.5-15.4); Immature Granulocytes % 0.4 % (0-4); Lymphocytes # 2.1 K/mcL (0.6-4.6); Mean Corpuscular HGB Conc 32.1 g/dL (31.6-35.5); Mean Corpuscular Hemoglobin 28.9 pg (28.0-33.3); Mean Platelet Volume 10.1 fL (9.4-12.4); Monocytes # 0.4 K/mcL (0.0-1.3); Monocytes % 5.2 %; Neutrophils # 5.2 K/mcL (1.6-8.9); Platelet Count 294 K/mcL (140-400); Red Blood Count 4.22 M/mcL (3.82-4.97); Red Cell Distribution Width 13.2 % (11.5-14.5); Segmented Neutrophils % 63.4 %; White Blood Count 8.2 K/mcL (4.3-11.1)
[2020-03-03] MEDS ORDERED: *HR* Heparin 5,000 UNIT/ML VIAL SQ SCH (06:00)
[2020-03-03] MEDS ORDERED: Insulin LISPRO 300 UNITS/3 ML VIAL SQ SCH (07:30)
[2020-03-03 08:19] LABS: Estimated Average Glucose 260 mg/dl
[2020-03-03] MEDS ORDERED: Isovue-370 500 ML BOTTLE IVP ONE (10:03)
[2020-03-03] MEDS: Ondansetron ODT 4 MG TAB.RAPDIS SL PRN ×2 (10:16→18:03)
[2020-03-03] MEDS: Levothyroxine 25 MCG TABLET PO SCH (10:32)
[2020-03-03] MEDS: Gabapentin 400 MG CAPSULE PO SCH ×2 (10:32→20:26)
[2020-03-03] MEDS: Aspirin Enteric Coated 81 MG Tablet PO SCH (10:32)
[2020-03-03] MEDS: Isosorbide MONOnitrate (24 HR) 30 MG TAB.ER.24H PO SCH (10:32)
[2020-03-03] MEDS: amLODIPine 5 MG TABLET PO SCH (10:32)
[2020-03-03] MEDS: FLUoxetine 20 MG CAPSULE PO SCH ×2 (10:32→20:25)
[2020-03-03] MEDS: carvediloL 6.25 MG TABLET PO SCH ×2 (10:33→20:25)
[2020-03-03] MEDS ORDERED: Perflutren Lipid Microsphere 1.3 ML in 0.9 % Sodium Chloride 8.7 ML IVP PRN ×2 (11:12→21:57)
[2020-03-03] MEDS: Insulin LISPRO 300 UNITS/3 ML VIAL SQ SCH ×3 (12:18→20:26)
[2020-03-03] MEDS ORDERED: *HR* Heparin 5,000 UNIT/ML VIAL IVP PRN ×2 (13:25)
[2020-03-03 14:44] LABS: Hematocrit 38.6 % (35.3-44.9); Mean Corpuscular HGB Conc 31.1 g/dL (31.6-35.5); Mean Corpuscular Hemoglobin 28.6 pg (28.0-33.3); Mean Corpuscular Volume 92.1 fL (83.0-100.0); Mean Platelet Volume 10.2 fL (9.4-12.4); Platelet Count 230 K/mcL (140-400); Red Blood Count 4.19 M/mcL (3.82-4.97); Red Cell Distribution Width 13.3 % (11.5-14.5); White Blood Count 8.1 K/mcL (4.3-11.1)
[2020-03-03 14:48] LABS: INR 1.1; Prothrombin Time 12.6 Seconds (9.4-12.1)
[2020-03-03 14:51] LABS: Heparin anti-factor XA UFH < 0.04 IU/mL (0.30-0.70)
[2020-03-03] MEDS: Heparin 25,000UNIT/250ML 1/2NS 25,000 UNIT/250 ML IV.SOLN IVC SCH (15:45)
[2020-03-03] MEDS ORDERED: Melatonin 3 MG TABLET PO ONE (20:44)
[2020-03-03] MEDS ORDERED: *HR* Promethazine 25 MG/ML VIAL IVP PRN (21:49)
[2020-03-04 05:28] LABS: Potassium 4.2 mEq/L (3.5-5.1)
[2020-03-04 05:49] LABS: Hematocrit 40.4 % (35.3-44.9); Hemoglobin 12.7 g/dL (11.5-15.4); Mean Corpuscular HGB Conc 31.4 g/dL (31.6-35.5); Mean Corpuscular Hemoglobin 29.1 pg (28.0-33.3); Mean Corpuscular Volume 92.7 fL (83.0-100.0); Mean Platelet Volume 10.5 fL (9.4-12.4); Platelet Count 290 K/mcL (140-400); Red Blood Count 4.36 M/mcL (3.82-4.97); Red Cell Distribution Width 13.4 % (11.5-14.5); White Blood Count 11.3 K/mcL (4.3-11.1)
[2020-03-04] MEDS: Levothyroxine 25 MCG TABLET PO SCH (06:06)
[2020-03-04] MEDS ORDERED: 0.9 % Sodium Chloride 1,000 ML IVC SCH (08:00)
[2020-03-04] MEDS: Insulin LISPRO 300 UNITS/3 ML VIAL SQ SCH ×4 (10:12→21:21)
[2020-03-04] MEDS: Isosorbide MONOnitrate (24 HR) 30 MG TAB.ER.24H PO SCH (10:18)
[2020-03-04] MEDS: Aspirin Enteric Coated 81 MG Tablet PO SCH (10:18)
[2020-03-04] MEDS: FLUoxetine 20 MG CAPSULE PO SCH ×2 (10:18→21:20)
[2020-03-04] MEDS: carvediloL 6.25 MG TABLET PO SCH ×2 (10:18→21:20)
[2020-03-04] MEDS: Gabapentin 400 MG CAPSULE PO SCH ×2 (10:18→21:20)
[2020-03-04] MEDS: amLODIPine 5 MG TABLET PO SCH (10:18)
[2020-03-04] MEDS: Heparin 25,000UNIT/250ML 1/2NS 25,000 UNIT/250 ML IV.SOLN IVC SCH (13:52)
[2020-03-04 14:29] LABS: Adenovirus Not Detected (Not Detect); Bordetella Pertussis Not Detected (Not Detect); Chlamydophila pneumoniae Not Detected (Not Detect); Coronavirus 229E Not Detected (Not Detect); Coronavirus HKU1 Not Detected (Not Detect); Coronavirus NL63 Not Detected (Not Detect); Coronavirus OC43 Not Detected (Not Detect); Human Metapneumovirus Not Detected (Not Detect); Human Rhinovirus/Enterovirus Not Detected (Not Detect); Influenza A Subtype 2009 H1 Not Detected (Not Detect); Influenza B Not Detected (Not Detect); Mycoplasma pneumoniae Not Detected (Not Detect); Parainfluenza Virus 1 Not Detected (Not Detect); Parainfluenza Virus 2 Not Detected (Not Detect); Parainfluenza Virus 3 Not Detected (Not Detect); Parainfluenza Virus 4 Not Detected (Not Detect); Respiratory Syncytial Virus Not Detected (Not Detect); SARS-CoV-2 Not Detected (Not Detect)
[2020-03-04] MEDS ORDERED: Ibuprofen 600 MG TABLET PO ONE (19:56)
[2020-03-04] MEDS ORDERED: Melatonin 3 MG TABLET PO ONE (22:04)
[2020-03-05] MEDS: Levothyroxine 25 MCG TABLET PO SCH (05:28)
[2020-03-05 05:59] LABS: Basophils # 0.1 K/mcL (0.0-0.2); Basophils % 0.7 %; Eosinophils # 0.8 K/mcL (0.0-0.6); Eosinophils % 7.6 %; Hematocrit 33.6 % (35.3-44.9); Immature Granulocytes % 0.5 % (0-4); Lymphocytes # 2.8 K/mcL (0.6-4.6); Lymphocytes % 27.8 %; Mean Corpuscular HGB Conc 31.5 g/dL (31.6-35.5); Mean Corpuscular Hemoglobin 29.6 pg (28.0-33.3); Mean Corpuscular Volume 93.9 fL (83.0-100.0); Mean Platelet Volume 10.4 fL (9.4-12.4); Monocytes # 0.6 K/mcL (0.0-1.3); Monocytes % 5.6 %; Neutrophils # 5.7 K/mcL (1.6-8.9); Platelet Count 254 K/mcL (140-400); Red Blood Count 3.58 M/mcL (3.82-4.97); Red Cell Distribution Width 13.6 % (11.5-14.5); Segmented Neutrophils % 57.8 %; White Blood Count 9.9 K/mcL (4.3-11.1)
[2020-03-05 06:04] LABS: Hemoglobin 10.6 g/dL (11.5-15.4)
[2020-03-05 06:21] LABS: Calcium 8.6 mg/dL (8.6-10.3)
[2020-03-05] MEDS: Insulin LISPRO 300 UNITS/3 ML VIAL SQ SCH ×4 (08:45→20:33)
[2020-03-05] MEDS ORDERED: Metoclopramide 10 MG/2 ML VIAL IVP ONE (08:53)
[2020-03-05] MEDS ORDERED: NON-FORMULARY MEDICATION 1 EACH EACH (Fluoxetine Hcl [Fluoxetine Hcl] 40 MG) PO SCH (09:00)
[2020-03-05] MEDS ORDERED: Lidocaine Viscous Oral Soln 15 ML SOLUTION MM PRN (10:41)
[2020-03-05] MEDS ORDERED: 0.9 % Sodium Chloride 500 ML IVC ONE (10:42)
[2020-03-05] MEDS ORDERED: Lidocaine Viscous Oral Soln 15 ML SOLUTION ONE (10:48)
[2020-03-05] MEDS: FLUoxetine 20 MG CAPSULE PO SCH ×2 (12:45→20:29)
[2020-03-05] MEDS: Aspirin Enteric Coated 81 MG Tablet PO SCH (12:45)
[2020-03-05] MEDS: Gabapentin 400 MG CAPSULE PO SCH ×2 (12:45→20:29)
[2020-03-05] MEDS: Fenofibrate 54 MG TABLET PO SCH (12:45)
[2020-03-05] MEDS: carvediloL 6.25 MG TABLET PO SCH ×2 (12:45→20:29)
[2020-03-05] MEDS: amLODIPine 5 MG TABLET PO SCH (12:46)
[2020-03-05] MEDS: Isosorbide MONOnitrate (24 HR) 30 MG TAB.ER.24H PO SCH (12:46)
[2020-03-05] MEDS: Heparin 25,000UNIT/250ML 1/2NS 25,000 UNIT/250 ML IV.SOLN IVC SCH (16:51)
[2020-03-06 01:23] LABS: Hematocrit 33.2 % (35.3-44.9); Hemoglobin 10.5 g/dL (11.5-15.4); Mean Corpuscular HGB Conc 31.6 g/dL (31.6-35.5); Mean Corpuscular Hemoglobin 29.7 pg (28.0-33.3); Mean Corpuscular Volume 93.8 fL (83.0-100.0); Mean Platelet Volume 10.6 fL (9.4-12.4); Platelet Count 258 K/mcL (140-400); Red Blood Count 3.54 M/mcL (3.82-4.97); Red Cell Distribution Width 13.4 % (11.5-14.5); White Blood Count 12.1 K/mcL (4.3-11.1)
[2020-03-06 01:42] LABS: Calcium 8.3 mg/dL (8.6-10.3)
[2020-03-06] MEDS: Levothyroxine 25 MCG TABLET PO SCH (05:50)
[2020-03-06] MEDS: Isosorbide MONOnitrate (24 HR) 30 MG TAB.ER.24H PO SCH (08:58)
[2020-03-06] MEDS: Aspirin Enteric Coated 81 MG Tablet PO SCH (08:58)
[2020-03-06] MEDS: amLODIPine 5 MG TABLET PO SCH (08:58)
[2020-03-06] MEDS: Fenofibrate 54 MG TABLET PO SCH (08:58)
[2020-03-06] MEDS: carvediloL 6.25 MG TABLET PO SCH (08:58)
[2020-03-06] MEDS: FLUoxetine 20 MG CAPSULE PO SCH (08:58)
[2020-03-06] MEDS: Gabapentin 400 MG CAPSULE PO SCH (08:58)
[2020-03-06] MEDS: Insulin LISPRO 300 UNITS/3 ML VIAL SQ SCH (08:59)
[2020-03-06] MEDS ORDERED: Apixaban 5 MG TABLET PO SCH (09:15)
[2020-03-06] MEDS: Ondansetron ODT 4 MG TAB.RAPDIS SL PRN (09:41)
[2020-03-06 11:53] VITALS: BP 119/67
== END 2020-03-06 14:43 | disposition home or self-care (01) | DRG 65 ==
LOC: EMEROOARM 13:59 → 3BNU 13:59
PROVIDERS: ADMIT Internal Medicine; ATTEND Internal Medicine